=== PATIENT | male | born 1940 | race Caucasian/White ===

== ENCOUNTER → 2023-06-01 08:27 | Outpatient (REF) | payer MEDICARE, OTHER, SELFPAY ==
[2023-06-01 10:14] LABS: ALT (SGPT) 28 U/L (0-50); AST (SGOT) 36 U/L (17-59); Albumin 4.5 g/dl (3.5-5.0); Alkaline Phosphatase 50 U/L (38-126); Blood Urea Nitrogen 24 mg/dl (9-20); Carbon Dioxide 29 mmol/L (22-30); Chloride 97 mmol/L (98-107); Glucose 108 mg/dl (70-99); Potassium 4.5 mmol/L (3.5-5.1); Sodium 135 mmol/L (135-145); Total Bilirubin 1.6 mg/dl (0.2-1.3); Total Protein 7.4 g/dl (6.3-8.2); eGFR > 60.00
[2023-06-01 11:30] LABS: PSA, Total - Diagnostic 3.37 ng/ml (0.0-4.0)
[2023-06-01 11:33] LABS: Testosterone, Total 43.9 ng/dl (72-623)
== END ==
LOC: REG 08:27
PROVIDERS: ATTENDING PHYSICIAN Nurse Practitioner Adult Health; FAMILY PHYSICIAN Internal Medicine
DX: M81.0 Age-related osteoporosis without current pathological fracture (principal); C61 Malignant neoplasm of prostate; C78.00 Secondary malignant neoplasm of unspecified lung
CPT/HCPCS: 36415; 80053; 84153; 84403

== ENCOUNTER 2023-08-02 14:56 | Emergency (ER) | payer MEDICARE, OTHER, SELFPAY ==
[2023-08-02 15:03] VITALS: BP 114/80; BMI 29.4
[2023-08-02 15:19] LABS: % Basophils 0.7 % (0-2); % Eosinophils 1.7 % (0-6); % Immature Granulocytes 1.3 % (0-0.5); % Lymphocytes 15.9 % (20.5-51.1); % Monocytes 11.2 % (1.7-9.3); % Neutrophils 69.2 % (42.2-75.2); Absolute Basophils 0.1 10^3/uL (0-0.2); Absolute Eosinophils 0.1 10^3/uL (0-0.7); Absolute Immature Granulocytes 0.1 10^3/uL (0-0.05); Absolute Lymphocytes 1.1 10^3/uL (1.2-3.4); Absolute Monocytes 0.8 10^3/uL (0.1-0.6); Absolute Neutrophils 4.8 10^3/uL (1.4-6.5); Hematocrit 40.9 % (39.0-52.0); Mean Corp Hgb Conc. 34.2 g/dL (33.0-37.0); Mean Corpuscular Volume 84.9 fL (80.0-94.0); Nucleated Red Blood Cells % 0 % (-); Platelet Count 226 10^3/uL (130-400); Red Blood Cell Count 4.82 10^6/uL (4.70-6.10); Red Cell Dist. Width 12.7 % (11.5-14.5); White Blood Cell Count 6.9 10^3/uL (4.8-10.8)
[2023-08-02 15:46] LABS: Troponin I < 0.012 ng/ml
[2023-08-02 15:50] LABS: ALT (SGPT) 25 U/L (0-50); AST (SGOT) 34 U/L (17-59); Albumin 4.3 g/dl (3.5-5.0); Alkaline Phosphatase 59 U/L (38-126); Blood Urea Nitrogen 18 mg/dl (9-20); Carbon Dioxide 28 mmol/L (22-30); Chloride 98 mmol/L (98-107); Estimated Creatinine Clearance 60 ml/min; Glucose 110 mg/dl (70-99); Potassium 4.8 mmol/L (3.5-5.1); Sodium 135 mmol/L (135-145); Total Bilirubin 1.6 mg/dl (0.2-1.3); Total Protein 7.3 g/dl (6.3-8.2); eGFR > 60.00
--- NOTE | 2023-08-02 16:56 | ED.GENMED ---
History of Present Illness
General
Chief Complaint: Abdominal Symptoms
Source: patient
Exam Limitations: none
Time Seen by Provider: 08/02/23 16:52
Nursing documentation reviewed up to this point in time: agreed with
Travel History
Have you had any contact with someone who has COVID-19?: No
Do you have any symptoms of coronavirus? Fever > 100 degrees, chills, cough, shortness of breath, sore throat, loss of taste or smell, muscle aches, or headache?: No
History of Present Illness
History of Present Illness:
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 He states that it began approximately 24 hours prior to arrival. Patient has a known history of GERD and treats with Carafate and
vzkg-yey-qbknwfk meds. He states that this pain continued last evening and was unable to sleep very well last night. This morning he was nauseated and was having upper back pain. He states that this pain is similar to previous episodes of
pancreatitis. 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 He states that his symptoms have improved throughout the day today. Patient states that he had a normal bowel movement this morning reports no nausea, vomiting, or
diarrhea at this time.
Vital signs are stable. Patient not hypoxic
Nursing note reviewed. I agree with nursing documentation up to this point in time.
Home Meds and allergies reviewed.
NUMBER AND COMPLEXITY OF PROBLEMS ADDRESSED AT THE ENCOUNTER
� Chronic conditions affecting care: Idiopathic pancreatitis, hypertension, hyperlipidemia
� Acute Exacerbation and/or Progression of Chronic Illness: None
� Differential Diagnosis includes: GERD, pancreatitis, colitis, constipation
AMOUNT AND/OR COMPLEXITY OF DATA TO BE REVIEWED AND ANALYZED
I performed an independent evaluation of the following and my interpretation is:
EKG: EKG shows sinus rhythm rate of 68 with prolonged LA interval, otherwise normal intervals, normal axis. No obvious evidence of acute ischemia present. When compared with previous EKG dated October 26, 2019, QT is slightly
shorter,
CT:
X-rays:
Ultrasound:
Laboratory Studies:
Other:
Review of other/old records:
Clinical information was obtained by an independent historian:
Prescriptions/Medications Considered but not given:
Further testing considered but not performed:
RISK OF COMPLICATIONS AND/OR MORBIDITY OR MORTALITY OF PATIENT MANAGEMENT
Social determinants of health affecting care: Good Social Support
Discussion with other providers:
Escalation of care including admission/observation vs risk of discharge considered:
CRITICAL CARE NOTE:
Total Time (exclusive of procedures):
Update:
Past History
Past History
ED Past Medical History: Cancer (Prostate diagnosed in 2001), HTN and Hypercholesterolemia
ED Past Surgical History: Cholecystectomy, Orthopedic (left knee repair, partial fusion lumbar spine) and Urological
Social History
Tobacco: Non-smoker
Alcohol: None
Drug: None
Living: with family
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
Family History
Family History: Other (reviewed and noncontributory)
Phy Exam
General Physical Exam
General Presentation: well appearing and no apparent distress
General Skin: warm and dry
General Habitus: normal
General Mental: alert
General Hydration: appears well hydrated
ENT Exam
ENT Exam: EOMI, pharynx normal, neck supple and normocephalic
Eye Exam
Eye Exam: PERRL, cornea clear and conjunctiva normal
Cardiovascular Exam
Cardiovascular Exam: regular rate/rhythm, no edema, no murmur and normal peripheral pulses
Pulmonary Exam
Pulmonary Exam: lungs clear, no respiratory distress, no rales, no crackles, no rhonchi, no stridor, no wheezing and no cough
Gastrointestinal Exam
Gastrointestinal Exam: normal bowel sounds, non tender, soft, no organomegaly, no pulsatile mass and non distended
Palpation: left upper quadrant: No tenderness and right upper quadrant: No tenderness
Neurological Exam
Neurological Exam: alert, oriented x3, no motor deficits and speech normal
Musculoskeletal Exam
Musculoskeletal Exam: full ROM and no edema
Skin Exam
Skin Exam: normal color, warm/dry, no rash and no petechia
Psychiatric Exam
Psychiatric Exam: normal mood/affect
Course
Orders/Labs/Results
Orders:
Orders
08/02/23 15:07
Electrocardiogram (*1) Urgent
Reason for Study: Chest Pain
EKG- Treatment ONCE
08/02/23 15:13
Complete Blood Count/With Diff Urgent
Comprehensive Metabolic Panel Urgent
Lipase Urgent
Comment: ADD-ON
Troponin I Urgent
08/02/23 16:57
Add On- LAB Urgent
Tests Added?: lipase
08/02/23 17:09
Lactated Ringers [Lr] 1,000 ml IV BOLUS
08/02/23 17:18
Acetaminophen [Tylenol] 650 mg PO NOW STA
08/02/23 17:19
Acetaminophen [Tylenol] 650 mg .ROUTE .STK-MED ONE
08/02/23 18:31
CT Abd/pelvis W Iv Cont Urgent
Comment:
Reason For Exam: upper abd pain, elevated LFT
08/02/23 20:26
Ciprofloxacin HCl [Cipro] 500 mg PO NOW STA
Abnormal Lab Results
08/02/23
15:13
Abs Immat Gran (auto) 0.1 H 10^3/uL
(0-0.05)
Absolute Lymphs (auto) 1.1 L 10^3/uL
(1.2-3.4)
Absolute Monos (auto) 0.8 H 10^3/uL
(0.1-0.6)
Immature Gran % 1.3 H %
(0-0.5)
Lymphocytes % 15.9 L %
(20.5-51.1)
Monocytes % 11.2 H %
(1.7-9.3)
Glucose 110 H mg/dl
(70-99)
Total Bilirubin 1.6 H mg/dl
(0.2-1.3)
Lipase 401 H U/L
(23-300)
08/02/23 15:13
08/02/23 15:13
Vital Signs
Initial and Last Documented VS:
Initial Vital Signs
Temp Pulse Resp BP Pulse Ox
98.3 F 81 20 114/80 98
08/02/23 15:03 08/02/23 15:03 08/02/23 15:03 08/02/23 15:03 08/02/23 15:03
Last Documented Vital Signs
Temp Pulse Resp BP Pulse Ox
98.6 F 55 20 158/89 98
08/02/23 20:23 08/02/23 20:23 08/02/23 20:23 08/02/23 20:23 08/02/23 20:45
*Critical Care Note
Total Time (30-74mins, 75-104mins- exclusive of procedures): Not Applicable
Update Note
Update Note:
Patient resting comfortably, minimal acute distress.
Patient put in the gastroenterology follow-up online via [place] text.
ED Attending Note
-
Portions of this chart may have been created with voice recognition software.� Occasional wrong word or��sound alike� substitutions may have occurred due to the inherent limitations of voice recognition software.
Discharge Plan
Departure
Patient Disposition: Home (Routine Discharge)
Date of Disposition: 08/02/23
Time of Disposition: 20:26
Patient with high blood pressure during this ER visit?: Yes
Condition: Good
Discharge Problem:
Acute proctitis, Abdominal pain, Elevated lipase
Instructions: Proctitis, Clear Liquid Diet, Constipation, Adult ED, Abdominal Pain, BLOOD PRESSURE
Prescriptions:
New
ciprofloxacin HCl 500 mg tablet
500 mg PO BID Qty: 20 0RF
docusate sodium 50 mg capsule
50 mg PO BID Qty: 30 0RF
No Action
losartan 50 MG tablet
50 mg PO DAILY
acetaminophen [Tylenol Extra Strength] 500 MG tablet
1,000 mg PO DAILYPRN PRN (Reason: back pain)
simvastatin 40 MG tablet
40 mg PO QPM
trazodone 150 MG tablet
100 mg PO HS
fluoxetine 10 MG capsule
10 mg PO DAILY
midodrine 5 MG tablet
5 mg PO TID@0800,1300,1800 Qty: 30 0RF
ondansetron 4 MG tablet,disintegrating
4 mg PO TIDPRN PRN (Reason: nausea) Qty: 12 0RF
Referrals:
[facility] [Provider Group] - Next open appointment
Saqib Hicks DO [Family Provider] -
Activity Restrictions/Additional Instructions:
It was a pleasure meeting you and taking part in your care. We hope for your continued healing and wellness.
Please read discharge instructions in their entirety. However, they are for general education and may not describe your exact diagnosis at discharge. Information on your ER visit and medical conditions were discussed with you along with appropriate
follow up information...
If indicated, please take your medications as instructed and indicated on discharge paperwork.
Please schedule a follow up appointment as directed. Call to schedule an appointment
Please return to the emergency department with ANY change in, persisting, or worsening of symptoms. If any of your symptoms do not improve, or persist, or become more severe within 6-12 hours, please return to the emergency department for further
care.
Please return to the emergency department if you develop a headache, neck pain/stiffness, fever greater than 100.4F, chest pain, shortness of breath, persistent nausea, vomiting, slurred speech, difficulty walking, numbness/tingling, weakness, signs
of infection or any other symptoms that are worrisome to you.
If you have any questions or concerns please do not hesitate to call the Hospital at or E-mail me directly at [email or web address]
Interventions
Interventions:
*Risk Screen - Suicide Last Done: 08/02/23 15:03
*General Assessment Last Done: 08/02/23 18:29
*Neglect/Abuse Screening Last Done: 08/02/23 15:03
ED- Fall Risk Assessment Last Done: 08/02/23 20:23
*ED COVID-19 Vaccine History Last Done: 08/02/23 18:29
*Nursing Disposition Last Done: 08/02/23 20:45
XF-Dmevmu-Clyrcucakz Assessment Last Done: 08/02/23 20:23
Discharge Date and Time
Discharge Date/Time: 08/02/23 21:58
Print Language: CONGOLESE
[2023-08-02] MEDS: LR 1000 IV (17:21)
[2023-08-02] MEDS: TYLENOL 650 MG PO (17:21)
[2023-08-02 17:27] LABS: Lipase 401 U/L (23-300)
[2023-08-02 18:20] VITALS: BP 148/99
[2023-08-02 20:23] VITALS: BP 158/89
[2023-08-02] MEDS: CIPRO 500 MG PO (20:32)
== END 2023-08-02 21:58 | disposition home or self-care (01) ==
LOC: EMR 14:56
PROVIDERS: Emergency Medicine; EMERGENCY PHYSICIAN Student in an Organized Health Care Education/Training Program; FAMILY PHYSICIAN Internal Medicine
DX: K62.89 Other specified diseases of anus and rectum (principal); R74.8 Abnormal levels of other serum enzymes; R10.9 Unspecified abdominal pain; K21.9 Gastro-esophageal reflux disease without esophagitis; I11.9 Hypertensive heart disease without heart failure; E78.00 Pure hypercholesterolemia, unspecified; Z90.49 Acquired absence of other specified parts of digestive tract; Z90.79 Acquired absence of other genital organ(s)
CPT/HCPCS: 99284; 96360; 96361; 74177; 80053; 83690; 84484; 85025; 93005; Q9967

== ENCOUNTER → 2023-08-28 09:31 | Outpatient (REF) | payer MEDICARE, OTHER, SELFPAY ==
[2023-08-28 10:59] LABS: Hematocrit 42.9 % (39.0-52.0); Hemoglobin 14.3 g/dL (13.0-18.0); Mean Corp Hgb Conc. 33.3 g/dL (33.0-37.0); Mean Corpuscular Hgb 29.2 pg (27.0-31.0); Mean Corpuscular Volume 87.7 fL (80.0-94.0); Mean Platelet Volume 9.4 fL (7.4-10.4); Platelet Count 252 10^3/uL (130-400); Red Blood Cell Count 4.89 10^6/uL (4.70-6.10); White Blood Cell Count 5.9 10^3/uL (4.8-10.8)
[2023-08-28 11:29] LABS: ALT (SGPT) 30 U/L (0-50); AST (SGOT) 38 U/L (17-59); Albumin 4.6 g/dl (3.5-5.0); Alkaline Phosphatase 62 U/L (38-126); Direct Bilirubin 0.3 mg/dl (0.0-0.4); Iron 88 ug/dl (49-181); Total Bilirubin 1.4 mg/dl (0.2-1.3); Total Protein 7.6 g/dl (6.3-8.2)
[2023-08-28 11:40] LABS: Percent Saturation 25 % (20-50); Total Iron Binding Capacity 352 ug/dl (261-462)
[2023-08-28 12:00] LABS: PSA, Total - Screen 5.46 ng/ml (0.0-4.0)
[2023-08-28 12:18] LABS: Hepatitis B Core Ab, Total Negative (Negative); Hepatitis B Surface Antibody Positive; Hepatitis C Antibody Negative (Negative)
[2023-08-29 18:18] LABS: F-Actin Antibody IgG 11 Units (0-19)
[2023-08-29 20:39] LABS: Ceruloplasmin 26 mg/dL (15-30)
[2023-08-29 22:55] LABS: ANA, IgG Reflex to HEp-2 None Detected (None Detected)
[2023-08-30 00:33] LABS: LKM-1 Ab (IgG) 1.1 U (0.0-24.9)
[2023-08-30 23:39] LABS: IgA 318 mg/dl (70-400); IgG 1020 mg/dl (700-1600); IgM 73 mg/dl (40-230)
== END ==
LOC: REG 09:31
PROVIDERS: ATTENDING PHYSICIAN Internal Medicine; FAMILY PHYSICIAN Internal Medicine; REFERRING PHYSICIAN Internal Medicine Gastroenterology
DX: C61 Malignant neoplasm of prostate (principal); C78.00 Secondary malignant neoplasm of unspecified lung; K76.0 Fatty (change of) liver, not elsewhere classified; Z12.5 Encounter for screening for malignant neoplasm of prostate
CPT/HCPCS: 36415; 80076; 82103; 82104; 82390; 82784; 83516; 83540; 83550; 84403; 85027; 86015; 86038; 86376; 86704; 86706; 86803; G0103

== ENCOUNTER → 2023-09-29 08:10 | Outpatient (REF) | payer MEDICARE, OTHER, SELFPAY | LOC: HWRAD 08:10 | PROVIDERS: ATTENDING PHYSICIAN Internal Medicine | DX: M81.0 Age-related osteoporosis without current pathological fracture (principal) | CPT/HCPCS: 77080 ==

== ENCOUNTER → 2023-11-24 11:01 | Outpatient (REF) | payer MEDICARE, OTHER, SELFPAY ==
[2023-11-24 12:46] LABS: PSA, Total - Diagnostic 6.77 ng/ml (0.0-4.0)
[2023-11-24 12:48] LABS: Testosterone, Total 37.9 ng/dl (72-623)
[2023-11-25 08:15] LABS: ALT (SGPT) 29 U/L (0-50); AST (SGOT) 35 U/L (17-59); Albumin 4.4 g/dl (3.5-5.0); Alkaline Phosphatase 51 U/L (38-126); Blood Urea Nitrogen 16 mg/dl (9-20); Calcium 9.5 mg/dl (8.4-10.2); Carbon Dioxide 23 mmol/L (22-30); Chloride 101 mmol/L (98-107); Glucose 109 mg/dl (70-99); Potassium 4.7 mmol/L (3.5-5.1); Sodium 139 mmol/L (135-145); Total Bilirubin 1.5 mg/dl (0.2-1.3); Total Protein 6.9 g/dl (6.3-8.2); eGFR > 60.00
== END ==
LOC: REG 11:01
PROVIDERS: ATTENDING PHYSICIAN Nurse Practitioner Adult Health; FAMILY PHYSICIAN Internal Medicine
DX: C61 Malignant neoplasm of prostate (principal); C78.00 Secondary malignant neoplasm of unspecified lung
CPT/HCPCS: 36415; 80053; 84153; 84403

== ENCOUNTER → 2024-01-12 09:16 | Outpatient (REF) | payer MEDICARE, OTHER, SELFPAY | LOC: HWRCS 09:16 | PROVIDERS: ATTENDING PHYSICIAN Nurse Practitioner Gerontology; FAMILY PHYSICIAN Internal Medicine | DX: I77.810 Thoracic aortic ectasia (principal); I35.1 Nonrheumatic aortic (valve) insufficiency | CPT/HCPCS: 93306 ==

== ENCOUNTER 2024-02-14 17:15 | Inpatient (IN) | payer MEDICARE, OTHER, SELFPAY ==
[2024-02-14] VITALS (10 sets, daily range): BP systolic 127–144; BP diastolic 80–93; BMI 29.9
--- NOTE | 2024-02-14 11:20 | ED.GENMED ---
History of Present Illness
General
Chief Complaint: Rectal Bleeding
Time Seen by Provider: 02/14/24 11:05
History of Present Illness
History of Present Illness:
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 Patient states that
last week he developed black tarry stools. He not have any abdominal pain or nausea vomiting. He does state that he has been taking Celebrex 2 times a day for back pain secondary to prior radiation. 24 hours ago his stool transition to maroon.
He has been having ongoing loose stools. No abdominal pain. No nausea or vomiting. He did have a both endoscopy and colonoscopy 4 years ago. 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
endoscopy showed resolution. He does state that his prior hemoglobin was normal but he has been more short of breath lately. He occasionally notes elevated heart rate though he states that it is normal for him in the morning and he takes his
metoprolol which resolves it. No recent travel or antibiotics. No sick contacts. Has never happened to him before.
Past History
Past History
ED Past Medical History: Cancer (Prostate diagnosed in 2001), HTN and Hypercholesterolemia
ED Past Surgical History: Cholecystectomy, Orthopedic (left knee repair, partial fusion lumbar spine) and Urological
Social History
Tobacco: Non-smoker
Alcohol: None
Drug: None
Living: with family
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
Family History
Family History: Other (reviewed and noncontributory)
Phy Exam
Physical Exam
Physical Exam:
GENERAL: in no acute distress
HEENT: normocephalic, extraocular movements intact, moist oral mucosa
NECK: normal inspection
RESPIRATORY: no respiratory distress, clear to auscultation bilaterally
CARDIOVASCULAR: regular rate and rhythm
ABDOMEN/: soft, non-distended, non-tender to palpation, no rebound or guarding
EXTREMITIES: non-tender, no edema/swelling
NEUROLOGIC: awake and alert, moves all extremities
SKIN: warm
Course
Orders/Labs/Results
Orders:
Orders
02/14/24 11:19
Electrocardiogram (*1) Urgent
Reason for Study: Shortness of Breath
EKG- Treatment ONCE
02/14/24 11:20
Ct Cta A/P W/Wo Urgent
Reason For Exam: diarrhea, gi bleed
02/14/24 11:36
Complete Blood Count/With Diff Urgent
Comprehensive Metabolic Panel Urgent
Troponin I Urgent
02/14/24 12:57
Stool Culture Urgent
RAQUEL Source: Feces/Stool
Specimen Description:
Date Specimen was Collected: 02/14/24
Time Specimen was Collected: 12:48
Abnormal Lab Results
02/14/24
11:36
RBC 4.65 L 10^6/uL
(4.70-6.10)
Absolute Lymphs (auto) 0.9 L 10^3/uL
(1.2-3.4)
Absolute Monos (auto) 0.8 H 10^3/uL
(0.1-0.6)
Lymphocytes % 13.3 L %
(20.5-51.1)
Monocytes % 12.2 H %
(1.7-9.3)
Total Bilirubin 1.4 H mg/dl
(0.2-1.3)
02/14/24 11:36
02/14/24 11:36
Vital Signs
Initial and Last Documented VS:
Initial Vital Signs
Temp Pulse Resp BP Pulse Ox
98.1 F 86 16 140/88 99
02/14/24 09:37 02/14/24 09:37 02/14/24 09:37 02/14/24 09:37 02/14/24 09:37
Last Documented Vital Signs
Temp Pulse Resp BP Pulse Ox
98.3 F 66 16 144/93 97
02/14/24 14:10 02/14/24 14:10 02/14/24 09:37 02/14/24 14:10 02/14/24 14:10
MDM/Problems Addressed
Differential Diagnosis Includes:
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
red. Vitals here notable for normal blood pressure and exam does show soft benign abdomen. Differential is broad but consists of diverticulitis versus peptic ulcer disease versus metastatic cancer. History exam not consistent with mesenteric
ischemia or aortic pathology. Shortness of breath could be secondary to anemia however will rule out cardiac etiology. Will obtain blood work EKG CT scan.
*Critical Care Note
Total Time (30-74mins, 75-104mins- exclusive of procedures): Not Applicable
Update Note
Update Note:
Blood work reassuring. His hemoglobin is stable. EKG per my interpretation normal sinus rhythm with first-degree AV block. CT scan does does show rectal mass consistent with rectal carcinoma as well as liver lesions suspicious for hepatic
metastatic disease. Given the ongoing bleeding as well as the masses after shared decision making we will admit patient for further monitoring and evaluation. Patient is extremely anxious so will treat with small dose of Ativan. Discussed with
hospitalist who excepted patient to their service.
ED Attending Note
-
Portions of this chart may have been created with voice recognition software.� Occasional wrong word or��sound alike� substitutions may have occurred due to the inherent limitations of voice recognition software.
Discharge Plan
Departure
Patient Disposition: Admit
Date of Disposition: 02/14/24
Time of Disposition: 14:57
Presentation/result/management discussed w/ accepting MD/DO: Hospitalist
Discharge Problem:
Rectal mass, Lesion of liver, Bloody stool
Prescriptions:
No Action
celecoxib [Celebrex] 200 mg Capsule
200 mg PO DAILYPRN PRN (Reason: mild pain)
atorvastatin [Lipitor] 20 mg Tablet
20 mg PO HS
calcium carbonate [Calcium 500] 500 mg calcium (1,250 mg) Tablet
500 mg PO DAILY
trazodone 150 mg Tablet
150 mg PO HS
hydrochlorothiazide 25 mg Tablet
12.5 mg PO MOWEFR@0800
metoprolol succinate 25 mg Tablet Extended Release 24 Hr
25 mg PO DAILY
escitalopram oxalate [Lexapro] 10 mg Tablet
10 mg PO HS
cholecalciferol (vitamin D3) [Vitamin D3] 25 mcg (1,000 unit) Tablet
25 mcg PO DAILY
Prolia 60 mg/mL Syringe
60 mg SC [id number]
Referrals:
Saqib Hicks DO [Family Provider] -
Interventions
Interventions:
*Risk Screen - Suicide Last Done: 02/14/24 09:40
*General Assessment Last Done: 02/14/24 11:37
*Neglect/Abuse Screening Last Done: 02/14/24 09:40
*ED COVID-19 Vaccine History Last Done: 02/14/24 11:37
FL-Najtkg-Rikcvjrnnu Assessment Last Done: 02/14/24 11:34
ED- Cardiac Assessment Last Done: 02/14/24 11:37
ED- Pulmonary Assessment Last Done: 02/14/24 11:37
Discharge Date and Time
Print Language: [place] CITIZ[place]
[2024-02-14 12:00] LABS: ALT (SGPT) 22 U/L (0-50); AST (SGOT) 32 U/L (17-59); Albumin 4.4 g/dl (3.5-5.0); Alkaline Phosphatase 45 U/L (38-126); Blood Urea Nitrogen 14 mg/dl (9-20); Calcium 9.1 mg/dl (8.4-10.2); Carbon Dioxide 29 mmol/L (22-30); Chloride 99 mmol/L (98-107); Estimated Creatinine Clearance 67 ml/min; Glucose 92 mg/dl (70-99); Potassium 3.9 mmol/L (3.5-5.1); Sodium 137 mmol/L (135-145); Total Bilirubin 1.4 mg/dl (0.2-1.3); Total Protein 7.1 g/dl (6.3-8.2); eGFR > 60.00
[2024-02-14 12:03] LABS: % Basophils 0.5 % (0-2); % Eosinophils 0.5 % (0-6); % Immature Granulocytes 0.5 % (0-0.5); % Lymphocytes 13.3 % (20.5-51.1); % Monocytes 12.2 % (1.7-9.3); Absolute Lymphocytes 0.9 10^3/uL (1.2-3.4); Absolute Monocytes 0.8 10^3/uL (0.1-0.6); Absolute Neutrophils 4.9 10^3/uL (1.4-6.5); Hemoglobin 13.7 g/dL (13.0-18.0); Mean Corp Hgb Conc. 33.4 g/dL (33.0-37.0); Mean Corpuscular Hgb 29.5 pg (27.0-31.0); Mean Corpuscular Volume 88.2 fL (80.0-94.0); Mean Platelet Volume 8.7 fL (7.4-10.4); Nucleated Red Blood Cells % 0 % (-); Platelet Count 258 10^3/uL (130-400); Red Blood Cell Count 4.65 10^6/uL (4.70-6.10); Red Cell Dist. Width 12.9 % (11.5-14.5); White Blood Cell Count 6.6 10^3/uL (4.8-10.8)
[2024-02-14 12:12] LABS: Troponin I < 0.012 ng/ml
[2024-02-14] MEDS: ATIVAN 0.25 MG PO (15:22)
--- NOTE | 2024-02-14 17:00 | HPS.HSE ---
Family Physician
-
Family Physician: Saqib Hicks
Chief Complaint
-
Blood in stool for few days duration
History of Present Illness
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 Patient black tarry stools in last few days. He had 2 bowel movements today with some bright blood but no active bleeding. Hemoglobin on admission 13.7. Patient
denied abdominal pain, nausea or vomiting. He takes Celebrex for muscle/bone pain but not on systemic anticoagulation or aspirin. Patient reported intentional weight loss recently but no significant weight loss. He had colonoscopy more than 4
years ago with no significant findings. Scan of the abdomen and pelvis showed enhancing mass in the rectum with enhancing lesion in the right lobe of the liver. Patient has metastatic prostate cancer that he followed at [place] but currently
not on specific medications.
Medical History
Past Medical History
Past Medical History: Reports Other (Ascending aortic aneurysm, hypertension, hyperlipidemia, anxiety, aortic regurgitation, metastatic prostate cancer.)
Past Surgical History: Reports Other (No recent major surgery)
Social History
Tobacco: Non-smoker
Alcohol: None
Drug: None
Personal:
Living: With Family
Employment: Retired
Family History
Family History: Other (His father had prostate cancer and colon cancer)
Allergies / Home Medications
Allergies reflects when Allergies were last updated in [email or web address].
Home Medications with original date entered in [email or web address]
Allergy/Medication List:
Allergies
Allergy/AdvReac Type Severity Reaction Status Date / Time
ketoconazole Allergy 'adverse Verified 08/02/23 15:06
reaction'
Home Medications
atorvastatin 20 mg tablet (Lipitor) 20 mg PO HS 02/14/24
calcium carbonate 500 mg PO DAILY 02/14/24
celecoxib 200 mg capsule (Celebrex) 200 mg PO DAILYPRN PRN mild pain 02/14/24
cholecalciferol (vitamin D3) 25 mcg (1,000 unit) tablet (Vitamin D3) 25 mcg PO DAILY 02/14/24
denosumab 60 mg/mL subcutaneous syringe (Prolia) 60 mg SC [id number] 02/14/24
escitalopram oxalate 10 mg tablet (Lexapro) 10 mg PO HS 02/14/24
hydrochlorothiazide 25 mg tablet 12.5 mg PO MOWEFR@0800 02/14/24
metoprolol succinate 25 mg tablet,extended release 24 hr 25 mg PO DAILY 02/14/24
trazodone 150 mg tablet 150 mg PO HS 02/14/24
Review of Systems
-
History Source: Patient
A 12 point ROS was completed and negative except as noted: Yes
Constitutional: Denies Fever or Chills
EENT: Denies Sore Throat
Respiratory: Denies Cough
Cardiac: Denies Chest Pain
Abdomen/GI: Reports Bloody Stools and Black Stools; Denies Abdominal Pain, Nausea, Vomiting or Diarrhea
: Denies Dysuria or Bleeding
Musculoskeletal: Denies Joint Swelling
Skin: Denies Rash
Neurological: Denies Numbness
Endocrine: Denies Temp Intolerance
Hematologic/Lymphatic: Denies Bruising
Psych: Denies Panic Disorder
Physical Exam
Vital Signs
Vital Signs
Temp Pulse Resp BP Pulse Ox
98.2 F 68 18 138/84 96
02/14/24 15:21 02/14/24 16:49 02/14/24 16:49 02/14/24 16:49 02/14/24 16:49
Physical Exam
General: Well Nourished, No Apparent Distress and Comfortable
HEENT: Moist mucous membranes and Atraumatic
Respiratory: Clear
Cardiac: S1/S2, Regular Rhythm and Murmur
GI: Non Tender and Non Distended
Genito-urinary: No costovertebral tender; No Toribio
Musculoskeletal: No Clubbing, No Cyanosis and No Edema
Skin: Warm; No Rash or Jaundice
Neuro: AO x 3 and Nonfocal/grossly intact; No Slurred Speech, Facial Droop or Tremors
Psych: Calm and Intact Judgment/Insight
Laboratory Results
-
02/14/24 11:36
02/14/24 11:36
Laboratory Results
Total Bilirubin 1.4 mg/dl (0.2-1.3) H 02/14/24 11:36
AST 32 U/L (17-59) 02/14/24 11:36
ALT 22 U/L (0-50) 02/14/24 11:36
Alkaline Phosphatase 45 U/L (38-126) 02/14/24 11:36
Troponin I < 0.012 ng/ml 02/14/24 11:36
Impression/Plan
-
[age] years old male presented with rectal bleeding/ melena
# History of lower GI bleeding/melena
Admit the patient to the hospital.
Secure peripheral IV line, two lines
Repeat hemoglobin few hours as admission HGB at 13. No active bleeding at the current time. Last bowel movement was this afternoon. No urgency to defecate noted
Consent for blood transfusion is signed by patient in the emergency room.
Monitor on telemetry.
CAT scan showed rectal mass/lymphadenopathy with liver lesion. Suspicious for rectal carcinoma
Liquid diet for now. No pain or abdominal tenderness. No distention on examination
Consult colorectal and oncology.
# History of primary hypertension. Will continue metoprolol monitor on telemetry. Hold hydrochlorothiazide. Patient reported dizziness upon standing at times which is usual for him.
#History of valvular heart disease, aortic regurgitation.
Echo in December, showed aortic root 4.1 cm, ascending aorta 4.2 cm with LVEF 65 to 70%, mild aortic regurgitation. No history of syncopal episode. No palpitations. EKG consistent with sinus rhythm.
# Anxiety. Patient requested as needed oral Ativan. Continue with Lexapro and trazodone.
Total time spent to see the patient on the floor, examine the patient, review data and lab results, discuss treatment plan with patient, ER doctor, nursing staff around 75 minutes.
--- NOTE | 2024-02-14 19:40 | PTCARENOTE ---
Pt received from ED via stretcher. Ambulated to bed without assistance. AAOx3. Denying pain. SaO2 98% on room air. Pt denying shortness of breath. Lungs clear to auscultation. Sinus rhythm with 1st degree AV block on ekg monitor tech. Trace LE
edema. Skin with scab on right hand; pt states it was cancerous lesion recently removed. Full liquid diet. No melena yet observed. Ambulatory with minimal assistance. Health history obtained and admission conducted with aid of patient.
[2024-02-14] MEDS: LEXAPRO 10 MG PO (21:48)
[2024-02-14] MEDS: ATIVAN 0.5 MG PO (21:48)
[2024-02-14] MEDS: DESYREL 150 MG PO (21:48)
[2024-02-14 22:12] LABS: Hemoglobin 13.2 g/dL (13.0-18.0)
[2024-02-15 03:45] VITALS: BP 122/84
[2024-02-15 07:21] VITALS: BP 137/88
[2024-02-15 07:44] LABS: Hematocrit 41.8 % (39.0-52.0); Mean Corp Hgb Conc. 33.5 g/dL (33.0-37.0); Mean Corpuscular Hgb 29.4 pg (27.0-31.0); Mean Corpuscular Volume 87.8 fL (80.0-94.0); Mean Platelet Volume 8.8 fL (7.4-10.4); Platelet Count 270 10^3/uL (130-400); Red Blood Cell Count 4.76 10^6/uL (4.70-6.10); Red Cell Dist. Width 12.9 % (11.5-14.5); White Blood Cell Count 6.3 10^3/uL (4.8-10.8)
[2024-02-15] MEDS: TOPROL XL 25 MG PO (07:49)
[2024-02-15 08:17] LABS: Blood Urea Nitrogen 14 mg/dl (9-20); Calcium 9.3 mg/dl (8.4-10.2); Carbon Dioxide 28 mmol/L (22-30); Chloride 99 mmol/L (98-107); Estimated Creatinine Clearance 60 ml/min; Glucose 114 mg/dl (70-99); Potassium 4.4 mmol/L (3.5-5.1); Sodium 137 mmol/L (135-145); eGFR > 60.00
--- NOTE | 2024-02-15 08:31 | W.PN.HOSP.TC ---
Today's Communication/Plan
-
CT scan of the chest. Liver MRI. Oncology and colorectal surgery eval.
Assessment / Plan
Assessment / Plan
Physical exam:
General: Well Developed, Well Nourished and No Apparent Distress
HEENT: Normocephalic, Atraumatic and Moist Mucous Membranes
Respiratory: Clear to Auscultation; Negative Wheezes, Rales or Rhonchi
Cardiac: Regular Rhythm and S1/S2
GI: Soft, Nontender and Nondistended
Musculoskeletal: No Clubbing, No Cyanosis and No Edema
Neuro: Awake, Alert and Oriented
Psych: Calm
A/P:
Rectal mass:
Plan for colonoscopy on 02/16
Appreciated colorectal surgery consult
Metastatic prostate cancer:
Oncology consult appreciated
MRI with 1.6 cm mass on right lobe
Right medial lower lobe 4 mm node on the lung
PSA 8.3
CEA pending
Hypertension and history of SVT:
Continue metoprolol succinate 25 mg p.o. daily
Hold HCTZ
Cardiac monitoring
Depression and anxiety:
Continue escitalopram 10 mg p.o. daily
Continue trazodone 150 mg p.o. nightly
Continue lorazepam 0.5 mg 3 times daily as needed
Ascending aortic aneurysm and mild aortic regurgitation:
Monitor clinically and with serial images
DVT prophylaxis:
SCDs
CODE STATUS:
Full code
Total time spent on today's encounter was 52 minutes which included time spent in counseling the patient/family regarding diagnosis and treatment plan as listed above, goals of care, and symptom management. Case was discussed with nursing staff,
specialists, and care coordinators/case management. All labs and imaging personally reviewed by me. Remainder the time spent in detailed review of previous records, lab data, imaging, and other medical provider documentation.
Anticipated Discharge: > 48 hours
Subjective/Interval History
-
Date of Service: February 15, 2024
No further rectal bleeding. No abdominal pain. No chest pain or shortness of breath.
Objective Data
-
Labs:
Laboratory Results
02/14/24 02/15/24
22:05 07:16
WBC 6.3
Hgb 13.2 14.0
Hct 41.8
Plt Count 270
Sodium 137
Potassium 4.4
Chloride 99
Carbon Dioxide 28
BUN 14
Creatinine 1.0
Glucose 114 H
Calcium 9.3
Vital Signs:
Vital Signs
Temp Pulse Resp BP Pulse Ox
98.2 F 73 18 137/88 96
02/15/24 07:21 02/15/24 07:21 02/15/24 07:21 02/15/24 07:21 02/15/24 07:21
I&O
02/14/24 02/15/24 02/16/24
06:59 06:59 06:59
Intake Total 480 / 480
Balance 480 / 480
--- NOTE | 2024-02-15 10:06 | CON.ONC ---
Documented by User: Hesham Mathis MD, Resident 02/15/24 12:02
Impression
Impression
Assessment/Plan
#Lower GI Bleed
#Lesion within the right lobe of the liver
#Mass in the right wall of the rectum
#History of Metastatic Prostate cancer.
#Hx of Right Lung middle lobe lesion
Plan
Plan
-Evaluate Liver lesion found on CT with MRI of Abdomen.
-Chest CT scan w IV contrast to exclude lung mets.
-Colonoscopy with Biopsy.
-Hgb stable, no evidence of active bleeding at this time.
-Monitor Hgb level.
-With elevated Tbil, check Direct Timbo.
-Check PSA level.
Patient History
History of Present Illness
Patient is an 83 y/o male with past medical history of Metastatic prostate cancer s/p radiation therapy, Right Lung middle lobe lesion s/p resection, bony metastatic disease s/p radiation therapy and Rib removal who presents to ER 02/13
complaining of dark tarry stools ongoing for the past week. Patient noted 2-3 bowel movements with bright red blood but no symptoms of active bleeding. He denies nausea, abdominal tenderness, shortness of breath. On presentation to the ER, Hgb was
13.7. Evaluation with Abdominal/Pelvis CT showed Enhancing mass which appears centered in the right wall of the rectum, and is highly suspicious for rectal carcinoma. There is evidence for spread in the perirectal fat as well as adjacent perirectal
lymphadenopathy. Peripherally enhancing lesion within the right lobe of the liver, which is suspicious for hepatic metastatic disease.
Past-Medical/Surgical History
metastatic prostate cancer
Right lung lesion
Ascending aortic aneurysm
hypertension
hyperlipidemia
anxiety
aortic regurgitation
Patient Medication
�Medication �Instructions �Recorded �Confirmed �Last Taken �Type
atorvastatin 20 mg tablet (Lipitor) 20 mg PO HS High Cholesterol 02/14/24 02/14/24 02/13/24 History
calcium carbonate 500 mg PO DAILY Supplement 02/14/24 02/14/24 02/13/24 History
celecoxib 200 mg capsule (Celebrex) 200 mg PO DAILYPRN PRN mild pain 02/14/24 02/14/24 Unknown History
cholecalciferol (vitamin D3) 25 25 mcg PO DAILY Supplement 02/14/24 02/14/24 02/13/24 History
mcg (1,000 unit) tablet (Vitamin
D3)
denosumab 60 mg/mL subcutaneous 60 mg SC [id number] 02/14/24 02/14/24 08/11/23 History
syringe (Prolia)
escitalopram oxalate 10 mg tablet 10 mg PO HS Mental Health/Anxiety 02/14/24 02/14/24 02/13/24 History
(Lexapro)
hydrochlorothiazide 25 mg tablet 12.5 mg PO MOWEFR@0800 Fluid 02/14/24 02/14/24 02/12/24 History
Retention/Swelling
metoprolol succinate 25 mg 25 mg PO DAILY Heart 02/14/24 02/14/24 02/14/24 History
tablet,extended release 24 hr Disease/Condition
trazodone 150 mg tablet 150 mg PO HS Sleep 02/14/24 02/14/24 02/13/24 History
Active Medications
Generic Name Dose Route Start Last Admin
Trade Name Freq PRN Reason Stop Dose Admin
Escitalopram Oxalate 10 mg 02/14/24 22:00 02/14/24 21:48
Escitalopram 10 Mg Tablet PO 03/13/24 21:59 10 mg
HS THONY Administration
Lorazepam 0.5 mg 02/14/24 22:00 02/14/24 21:48
Lorazepam 0.5 Mg Tablet PO 03/13/24 21:59 0.5 mg
TIDPRN PRN Administration
anxiety
Metoprolol Succinate 25 mg 02/15/24 08:00 02/15/24 07:49
Metoprolol 25 Mg Extended Release Tablet PO 03/14/24 07:59 25 mg
DAILY THONY Administration
Trazodone HCl 150 mg 02/14/24 22:00 02/14/24 21:48
Trazodone 150 Mg Tablet PO 03/13/24 21:59 150 mg
HS THONY Administration
Review of Systems
-
History Source: Patient
All Other Systems: Reviewed and Negative (except as documented. )
Physical Exam
-
General: No Apparent Distress
Cardiology: Normal Sinus Rhythm, S1 and S2
Pulmonary: Clear
GI: Soft and Normal Bowel Sounds; Negative Distended
Musculoskeletal: No Edema
Extremities: Pulses Present
Skin: Warm
Psych: Calm
Labs
Lab Results
WBC 6.3 10^3/uL (4.8-10.8) 02/15/24 07:16
RBC 4.76 10^6/uL (4.70-6.10) 02/15/24 07:16
Hgb 14.0 g/dL (13.0-18.0) 02/15/24 07:16
Hct 41.8 % (39.0-52.0) 02/15/24 07:16
MCV 87.8 fL (80.0-94.0) 02/15/24 07:16
MCH 29.4 pg (27.0-31.0) 02/15/24 07:16
MCHC 33.5 g/dL (33.0-37.0) 02/15/24 07:16
RDW 12.9 % (11.5-14.5) 02/15/24 07:16
Plt Count 270 10^3/uL (130-400) 02/15/24 07:16
MPV 8.8 fL (7.4-10.4) 02/15/24 07:16
Abs Immat Gran (auto) 0.0 10^3/uL (0-0.05) 02/14/24 11:36
Absolute Neuts (auto) 4.9 10^3/uL (1.4-6.5) 02/14/24 11:36
Absolute Lymphs (auto) 0.9 10^3/uL (1.2-3.4) L 02/14/24 11:36
Absolute Monos (auto) 0.8 10^3/uL (0.1-0.6) H 02/14/24 11:36
Absolute Eos (auto) 0.0 10^3/uL (0-0.7) 02/14/24 11:36
Absolute Basos (auto) 0.0 10^3/uL (0-0.2) 02/14/24 11:36
Immature Gran % 0.5 % (0-0.5) 02/14/24 11:36
Neutrophils % 73.0 % (42.2-75.2) 02/14/24 11:36
Lymphocytes % 13.3 % (20.5-51.1) L 02/14/24 11:36
Monocytes % 12.2 % (1.7-9.3) H 02/14/24 11:36
Eosinophils % 0.5 % (0-6) 02/14/24 11:36
Basophils % 0.5 % (0-2) 02/14/24 11:36
Creatinine 1.0 mg/dL (0.7-1.3) 02/15/24 07:16
Vital Signs
Vital Signs
Temp Pulse Resp BP Pulse Ox
98.2 F 73 18 137/88 96
02/15/24 07:21 02/15/24 07:21 02/15/24 07:21 02/15/24 07:21 02/15/24 07:21

Documented by User: Radha Portillo MD 02/15/24 20:54
Plan
Plan
-Evaluate Liver lesion found on CT with MRI of Abdomen.
-Chest CT scan w IV contrast to exclude lung mets.
-Colonoscopy with Biopsy.
-Hgb stable, no evidence of active bleeding at this time.
-Monitor Hgb level.
-With elevated Tbil, check Direct Timbo.
-Check PSA level.
ATTENDING ADDENDUM
Pt seen and examined, chart reviewed.
History of radical prostatectomy, got salvage radiation for biochemical recurrence. Also had lung nodule resection.
Known to Dr. Curry, cancer care has been at [facility].
If biopsy positive for rectal cancer then MSI testing.
Family history of prostate and rectal cancer in father is noted, denies other family history of cancer.
NCCN Guidelines reviewed with caveat that he has already had pelvic radiation.
Thank you for consult, will follow along with you.
--- NOTE | 2024-02-15 10:28 | CON.CRS ---
Consultation
-
Date/Time Consultation Requested: 02/14/2024, 18:06
Date/Time Consultation Performed: 02/15/2024, 9:00
Requesting Provider: Eddi Morales MD
Performing Provider: Ranjan Ralph MD
Reason for Consultation: rectal bleeding
Medical History
-
Chief Complaint: Rectal bleeding
History of Present Illness:
83-year-old male with a history of metastatic prostate cancer, presents to [facility] complaining of about a week of rectal bleeding. The patient states he noticed his bowels changed about 6 weeks ago in frequency. He then noted about a
week ago black tarry stools which were then followed by brown and red stools. He denies abdominal pain or rectal pain. He has a history of prostate cancer that metastasized to his right rib and right middle lung. He underwent a prostatectomy in
2001 followed by a right lower lobe lobectomy in 2019. The lesion in the right rib was treated with radiotherapy. He is currently under the care of [place]. He states he had a PET scan in May that showed a nonhealing rib with no metastasis.
His PSA has been slowly trending upwards but the rate has been so slow, he has not required any further treatment.
Due to the bleeding not stopping, he came to the ER yesterday. On admission his hemoglobin was 13.7 and is 14.0 today. His vitals have remained normal. CT of the abdomen and pelvis shows an enhancing mass which appears centered in the right wall
of the rectum suspicious for rectal cancer. There is evidence for spread in the perirectal fat as well as adjacent perirectal lymphadenopathy. There is also a peripherally enhancing lesion in the right lobe of the liver suspicious for hepatic
metastatic disease. His last colonoscopy was in [address] Turcios which showed a normal colon. Given the above findings, we have been consulted for further surgical opinion.
Past Medical History
Past Medical History: Other (Ascending aortic aneurysm, hypertension, hyperlipidemia, anxiety, aortic regurgitation, metastatic prostate cancer)
Past Surgical History: Other (prostatectomy - 2001, rib biopsy - 2019, Spinal fusion)
Social History
Tobacco: Non-Smoker
Alcohol: None
Drug: None
Personal:
Family History
Family History: Cancer (Father - prostate cancer 62yo, rectal cancer 82yo)
Allergies / Home Medications
Allergy/AdvReac Type Severity Reaction Status Date / Time
ketoconazole Allergy 'adverse Verified 08/02/23 15:06
reaction'
�Medication �Instructions �Recorded �Confirmed �Type
atorvastatin 20 mg tablet (Lipitor) 20 mg PO HS High Cholesterol 02/14/24 02/14/24 History
calcium carbonate 500 mg PO DAILY Supplement 02/14/24 02/14/24 History
celecoxib 200 mg capsule (Celebrex) 200 mg PO DAILYPRN PRN mild pain 02/14/24 02/14/24 History
cholecalciferol (vitamin D3) 25 25 mcg PO DAILY Supplement 02/14/24 02/14/24 History
mcg (1,000 unit) tablet (Vitamin
D3)
denosumab 60 mg/mL subcutaneous 60 mg SC [id number] 02/14/24 02/14/24 History
syringe (Prolia)
escitalopram oxalate 10 mg tablet 10 mg PO HS Mental Health/Anxiety 02/14/24 02/14/24 History
(Lexapro)
hydrochlorothiazide 25 mg tablet 12.5 mg PO MOWEFR@0800 Fluid 02/14/24 02/14/24 History
Retention/Swelling
metoprolol succinate 25 mg 25 mg PO DAILY Heart 02/14/24 02/14/24 History
tablet,extended release 24 hr Disease/Condition
trazodone 150 mg tablet 150 mg PO HS Sleep 02/14/24 02/14/24 History
Review of Systems
-
History Source: Patient
Abdomen/GI: Bloody Stools, Black Stools and Other (change in bowel habits)
A 10 point review of systems was completed, and was negative except as per HPI.
Physical Exam
Vital Signs
Temp 98.2 F 02/15/24 07:21
Pulse 73 02/15/24 07:21
Resp Rate 18 02/15/24 07:21
Blood pressure 137/88 02/15/24 07:21
SaO2 96 02/15/24 07:21
02/14/24 02/15/24 02/16/24
06:59 06:59 06:59
Actual Weight 97.296 kg
Body Mass Index (BMI) 29.9
Lab Results / Allergies
02/15/24 07:16
02/15/24 07:16
WBC 6.3 10^3/uL (4.8-10.8) 02/15/24 07:16
Hgb 14.0 g/dL (13.0-18.0) 02/15/24 07:16
Hct 41.8 % (39.0-52.0) 02/15/24 07:16
Plt Count 270 10^3/uL (130-400) 02/15/24 07:16
Abs Immat Gran (auto) 0.0 10^3/uL (0-0.05) 02/14/24 11:36
Neutrophils % 73.0 % (42.2-75.2) 02/14/24 11:36
Allergy/AdvReac Type Severity Reaction Status Date / Time
ketoconazole Allergy 'adverse Verified 08/02/23 15:06
reaction'
Physical Exam
General: Well Developed, Well Nourished and No Apparent Distress
GI: Soft, Non Tender and Non Distended
Rectal: Other (tip of the finger can feel rectal mass, no gross blood noted)
Skin: Warm and Dry
Neuro: AO x 3
Data Reviewed
-
CT Scan: Image Personally Visualized and interpreted, Report Reviewed by me and Discussed with Patient
Labs: Labs Reviewed by me, Discussed with Physician and Discussed with Patient
Old Records: Reviewed
Assessment / Plan
-
Assessment: 83-year-old male with a significant past medical history of prostate cancer status post prostatectomy and immunotherapy, presents to [facility] with a few weeks of rectal bleeding and dark stools, found to have a mass in the rectum
Plan:
-Plan for colonoscopy, this 02/17/[address] Ralph
-Start clears in AM
-Bowel prep tomorrow
-CT chest for metastatic work up
-MRI abdomen for further liver lesion workup per heme onc
-PSA and CEA pending
[2024-02-15 11:03] LABS: Direct Bilirubin 0.3 mg/dl (0.0-0.4)
[2024-02-15 12:09] LABS: PSA, Total - Diagnostic 8.38 ng/ml (0.0-4.0)
[2024-02-15] MEDS: ATIVAN 0.5 MG PO ×2 (15:01→21:23)
[2024-02-15 15:55] VITALS: BP 137/83
--- NOTE | 2024-02-15 16:07 | CM ---
Patient seen at bedside.
IA completed.
Dx: GI bleeding
PMH: metastatic prostate ca s/p prostatectomy and immunotherapy
He stated will have colonoscopy on Thursday
Lives in a 2 story home with his , first floor set up
PLOF: Independent, no assistive device, drives
DME: shower chair
Denies hh/rehab
PCP: Saqib Hicks
Pharmacy: [facility], [address], [place]
PLAN: home, no needs anticipated
to transport
[2024-02-15 19:37] VITALS: BP 121/87
[2024-02-15] MEDS: LEXAPRO 10 MG PO (21:23)
[2024-02-15] MEDS: DESYREL 150 MG PO (21:23)
[2024-02-15 23:41] VITALS: BP 114/63
[2024-02-16] VITALS (8 sets, daily range): BP systolic 63–149; BP diastolic 68–86; BMI 29.5
[2024-02-16 07:23] LABS: Hematocrit 37.6 % (39.0-52.0); Mean Corp Hgb Conc. 34.6 g/dL (33.0-37.0); Mean Corpuscular Hgb 29.1 pg (27.0-31.0); Mean Corpuscular Volume 84.3 fL (80.0-94.0); Mean Platelet Volume 8.7 fL (7.4-10.4); Platelet Count 244 10^3/uL (130-400); Red Blood Cell Count 4.46 10^6/uL (4.70-6.10); Red Cell Dist. Width 12.9 % (11.5-14.5); White Blood Cell Count 5.6 10^3/uL (4.8-10.8)
[2024-02-16 07:55] LABS: ALT (SGPT) 21 U/L (0-50); AST (SGOT) 33 U/L (17-59); Albumin 3.9 g/dl (3.5-5.0); Alkaline Phosphatase 50 U/L (38-126); Blood Urea Nitrogen 12 mg/dl (9-20); Calcium 8.6 mg/dl (8.4-10.2); Carbon Dioxide 27 mmol/L (22-30); Chloride 100 mmol/L (98-107); Estimated Creatinine Clearance 60 ml/min; Glucose 103 mg/dl (70-99); Potassium 4.1 mmol/L (3.5-5.1); Sodium 134 mmol/L (135-145); Total Bilirubin 1.7 mg/dl (0.2-1.3); Total Protein 6.4 g/dl (6.3-8.2); eGFR > 60.00
[2024-02-16] MEDS: TOPROL XL 25 MG PO (08:35)
--- NOTE | 2024-02-16 09:02 | W.PN.CRS1 ---
Today's Communication / Plan
-
-As below
Assessment/Plan
-
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
and metastasis to rib s/p radiation in 2020; PSA has been slowly rising recently, but oncology at [place] is currently just monitoring) who presents with blood per rectum. He first noticed melena 2 to 3 weeks ago and then developed red blood for
the last 2 to 3 days, which prompted him to go to the ED. Hemoglobin 13.7. A CTA was done revealing a right-sided rectal mass as well as a lesion in the liver, concerning for metastasis, no active bleeding
AFVSS, ABD soft, nondistended, nontender, no palpable inguinal LAD; rectal�normal tone, no gross blood, palpable nodularity, not easily mobile, in the right to posterior aspect of the mid rectum, about 6-7 cm from the anal verge
Hb 13.0 to 14.0
� New diagnosis of rectal mass, concerning for rectal cancer; lesion in the liver concerning for met
�Plan for colonoscopy tomorrow; clears today with bowel prep this afternoon
�Follow-up CEA
�MRI abdomen - 1.6 cm solitary hepatic mass; recommend IR biopsy to confirm this is colon versus prostate
�Appreciate oncology
� Okay for DVT PPx
� Encourage OOB/IS
� Appreciate hospitalist
Subjective Data
Subjective Data
Date of Service: February 16, 2024
No overnight events.
Pain controlled.
Denies nausea/vomiting. Tolerating diet.
+flatus +BMs +voiding
Pt is OOB.
Objective Data
-
Vital Signs
Temp Pulse Resp BP Pulse Ox
97.9 F 72 18 128/80 95
02/16/24 03:48 02/16/24 08:35 02/16/24 03:48 02/16/24 08:35 02/16/24 03:48
Intake & Output
02/15/24 02/16/24 02/17/24
06:59 06:59 06:59
Intake Total 480 / 480 1600 / 1600
Balance 480 / 480 1600 / 1600
Intake:
Oral fluids 480 / 480 1600 / 1600
Other:
Number of approximated MODERATE 2 2
amounts of urine
Lab Results
02/16/24 06:36
02/16/24 06:36
Physical Exam
-
General: No Acute Distress and AOx3
HEENT: Grossly Normal
Abdomen: Soft, Non Distended and Non Tender
Skin: Warm and Dry
--- NOTE | 2024-02-16 10:43 | W.PN.HOSP.TC ---
Today's Communication/Plan
-
IR for liver biopsy. Colonoscopy in a.m.
Assessment / Plan
Assessment / Plan
Physical exam:
General: Well Developed, Well Nourished and No Apparent Distress
HEENT: Normocephalic, Atraumatic and Moist Mucous Membranes
Respiratory: Clear to Auscultation; Negative Wheezes, Rales or Rhonchi
Cardiac: Regular Rhythm and S1/S2
GI: Soft, Nontender and Nondistended
Musculoskeletal: No Clubbing, No Cyanosis and No Edema
Neuro: Awake, Alert and Oriented
Psych: Anxious
A/P:
Rectal mass:
Plan for colonoscopy on 02/16
Appreciated colorectal surgery consult
Metastatic prostate cancer:
Oncology consult appreciated
MRI with 1.6 cm mass on right lobe--> IR consult for liver biopsy
Right medial lower lobe 4 mm node on the lung
PSA 8.3
CEA pending
Hypertension and history of SVT:
Continue metoprolol succinate 25 mg p.o. daily
Hold HCTZ
Cardiac monitoring
Depression and anxiety:
Continue escitalopram 10 mg p.o. daily
Continue trazodone 150 mg p.o. nightly
Continue lorazepam 0.5 mg 3 times daily as needed
Ascending aortic aneurysm and mild aortic regurgitation:
Monitor clinically and with serial images as outpatient
DVT prophylaxis:
SCDs
CODE STATUS:
Full code
Anticipated Discharge: Within 24 hours
Subjective/Interval History
-
Date of Service: February 16, 2024
Patient doing well today. Afebrile. No further rectal bleeding.
Objective Data
-
Labs:
Laboratory Results
02/16/24
06:36
WBC 5.6
Hgb 13.0
Hct 37.6 L
Plt Count 244
Sodium 134 L
Potassium 4.1
Chloride 100
Carbon Dioxide 27
BUN 12
Creatinine 1.0
Glucose 103 H
Calcium 8.6
Total Bilirubin 1.7 H
AST 33
ALT 21
Alkaline Phosphatase 50
Vital Signs:
Vital Signs
Temp Pulse Resp BP Pulse Ox
97.2 F 72 17 128/80 97
02/16/24 07:20 02/16/24 08:35 02/16/24 07:20 02/16/24 08:35 02/16/24 07:20
I&O
02/15/24 02/16/24 02/17/24
06:59 06:59 06:59
Intake Total 480 / 480 1600 / 1600
Balance 480 / 480 1600 / 1600
--- NOTE | 2024-02-16 13:03 | CM ---
Patient seen at bedside.
Clear liq diet
Colonoscopy tomorrow
No needs anticipated
PLAN: home, no needs
to transport
[2024-02-16 13:17] LABS: PT 14.5 Sec (11.4-14.6)
[2024-02-16] MEDS: NULYTELY SOLUTION 4 LITERS PO (13:27)
--- NOTE | 2024-02-16 15:55 | W.PN.UPDATE ---
Update Note
Progress Note Update
- US guided biopsy of subcapsular R hepatic lobe lesion performed.
- 4 18g core samples obtained.
- Patient tolerated well. 3 hrs bedrest.
[2024-02-16 17:56] LABS: CEA 6.83 ng/ml
[2024-02-16] MEDS: DESYREL 150 MG PO (21:32)
[2024-02-16] MEDS: LEXAPRO 10 MG PO (21:32)
[2024-02-16] MEDS: ATIVAN 0.5 MG PO (21:32)
[2024-02-17 03:10] VITALS: BP 132/80
[2024-02-17 05:37] LABS: Hematocrit 36.9 % (39.0-52.0); Hemoglobin 12.7 g/dL (13.0-18.0); Mean Corp Hgb Conc. 34.4 g/dL (33.0-37.0); Mean Corpuscular Volume 84.2 fL (80.0-94.0); Mean Platelet Volume 8.8 fL (7.4-10.4); Platelet Count 227 10^3/uL (130-400); Red Blood Cell Count 4.38 10^6/uL (4.70-6.10); Red Cell Dist. Width 12.6 % (11.5-14.5); White Blood Cell Count 5.9 10^3/uL (4.8-10.8)
[2024-02-17 05:47] LABS: Blood Urea Nitrogen 12 mg/dl (9-20); Calcium 8.4 mg/dl (8.4-10.2); Carbon Dioxide 28 mmol/L (22-30); Chloride 100 mmol/L (98-107); Estimated Creatinine Clearance 60 ml/min; Glucose 106 mg/dl (70-99); Magnesium 2.1 mg/dl (1.6-2.3); Potassium 4.2 mmol/L (3.5-5.1); Sodium 134 mmol/L (135-145); eGFR > 60.00
--- NOTE | 2024-02-17 07:10 | W.PN.ONC2 ---
Today's Communication / Plan
-
Await path review and needs outpt F/U to discuss Tx options based on path.
Impression
Impression
Assessment/Plan
Rectal mass
Lower GI Bleed
right lobe liver lesion
Metastatic Prostate cancer, GL6 to lung
Plan
Plan
Awaiting Colonoscopy. liver Bx path.
Stable for D/C with outpt F/U. Card provided.
Hgb stable, no evidence of active bleeding at this time.
Rising PSA noted. Mildly elevated CEA also noted.
Subjective/Objective
Chief Complaint
ACS Heme Onc
Subjective
No c/o. Hoping to go hiome this afternoon s/p colonoscopy. S/P liver Bx yesterday.
Vital Signs:
Vital Signs
Temp Pulse Resp BP Pulse Ox
98 F 71 12 132/80 96
02/17/24 03:10 02/17/24 03:10 02/17/24 03:10 02/17/24 03:10 02/17/24 03:10
Lab Results:
Laboratory Data
WBC 5.9 10^3/uL (4.8-10.8) 02/17/24 05:05
Hgb 12.7 g/dL (13.0-18.0) L 02/17/24 05:05
Plt Count 227 10^3/uL (130-400) 02/17/24 05:05
PT 14.5 Sec (11.4-14.6) 02/16/24 12:32
INR 1.10 02/16/24 12:32
eGFR > 60.00 02/17/24 05:05
Laboratory Tests
02/15/24
07:16
Carcinoembryonic Ag 6.83
Prostate Specific Ag 8.38 H
[2024-02-17 07:20] VITALS: BP 132/79
[2024-02-17] MEDS: TOPROL XL 25 MG PO (08:15)
--- NOTE | 2024-02-17 09:02 | W.PN.HOSP.TC ---
Today's Communication/Plan
-
Colonoscopy. Discharge planning
Assessment / Plan
Assessment / Plan
Physical exam:
General: Well Developed, Well Nourished and No Apparent Distress
HEENT: Normocephalic, Atraumatic and Moist Mucous Membranes
Respiratory: Clear to Auscultation; Negative Wheezes, Rales or Rhonchi
Cardiac: Regular Rhythm and S1/S2
GI: Soft, Nontender and Nondistended
Musculoskeletal: No Clubbing, No Cyanosis and No Edema
Neuro: Awake, Alert and Oriented
Psych: Anxious
A/P:
Rectal mass:
Plan for colonoscopy today on 02/16
Appreciated colorectal surgery consult
Appreciated GI consult
If everything goes well he could potentially go after colonoscopy today.
Metastatic prostate cancer:
Oncology consult appreciated
MRI with 1.6 cm mass on right lobe--> IR consult for liver biopsy--> status post liver biopsy on 02/15
Right medial lower lobe 4 mm node on the lung
PSA 8.3
CEA 6.83
Hypertension and history of SVT:
Continue metoprolol succinate 25 mg p.o. daily
Hold HCTZ
Cardiac monitoring
Depression and anxiety:
Continue escitalopram 10 mg p.o. daily
Continue trazodone 150 mg p.o. nightly
Continue lorazepam 0.5 mg 3 times daily as needed
Ascending aortic aneurysm and mild aortic regurgitation:
Monitor clinically and with serial images as outpatient
DVT prophylaxis:
SCDs
CODE STATUS:
Full code
Anticipated Discharge: Today
Subjective/Interval History
-
Date of Service: February 17, 2024
Patient denies any abdominal pain nausea or vomiting. He had bowel prep today. No chest pain or shortness of breath.
Objective Data
-
Labs:
Laboratory Results
02/17/24
05:05
WBC 5.9
Hgb 12.7 L
Hct 36.9 L
Plt Count 227
Sodium 134 L
Potassium 4.2
Chloride 100
Carbon Dioxide 28
BUN 12
Creatinine 1.0
Glucose 106 H
Calcium 8.4
Vital Signs:
Vital Signs
Temp Pulse Resp BP Pulse Ox
98 F 77 12 132/79 96
02/17/24 03:10 02/17/24 08:15 02/17/24 03:10 02/17/24 08:15 02/17/24 03:10
I&O
02/16/24 02/17/24 02/18/24
06:59 06:59 06:59
Intake Total 1600 / 1600 1265 / 1265
Output Total 250 / 250
Balance 1600 / 1600 1015 / 1015
[2024-02-17 11:10] VITALS: BP 135/82
[2024-02-17 15:56] VITALS: BP 90/63
[2024-02-17 16:00] VITALS: BP 99/78
[2024-02-17 16:15] VITALS: BP 134/76
--- NOTE | 2024-02-17 16:33 | CM ---
Patient returned to room from colonoscopy
IMM explained & signed. In chart.
PLAN: Home, no needs.
to transport
--- NOTE | 2024-02-17 17:03 | W.DCSUMMARY ---
Discharge Summary
Discharge Data
Date of Admission: 02/14/24
Date of Discharge: 02/17/24
-
Pending Results: No
Hospital Course
Patient 83 years old male with history of metastatic prostate cancer, hypertension, hyperlipidemia, came into the hospital with rectal bleeding. Patient had colorectal surgery and oncology consulted. She had abdominal MRI and CT scan of the chest
for further evaluation and found to have a liver mass and subcentimeter pulmonary nodule. IR consult and he had a liver biopsy done and results will be follow-up as outpatient. He also underwent colonoscopy and he was found lesions in the mid
rectum and biopsy taken and will be follow-up as outpatient. Otherwise, patient is hemodynamically stable and feels back to his baseline. He will be discharged in stable condition today and will follow-up results as outpatient with colorectal
surgery and oncology. 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 No other events were noticed.
Discharge duration: 35 minutes
Discharge Plan
-
Patient Disposition: Home (Routine Discharge)
Discharge Diagnosis/Procedures: Acute lower gastrointestinal bleed. Rectal mass. Liver mass. Metastatic prostate cancer.
Diet: Low Cholesterol
Activity: As tolerated
Blood Work: Please PCP to order CBC, BMP within 1 week
Referrals:
Saqib Hicks, DO [Family Provider] - in less than 1 week
Prescriptions:
Continued
celecoxib [Celebrex] 200 mg Capsule
200 mg PO DAILYPRN PRN (Reason: mild pain)
atorvastatin [Lipitor] 20 mg Tablet
20 mg PO HS
calcium carbonate 500 mg calcium (1,250 mg) Tablet
500 mg PO DAILY
trazodone 150 mg Tablet
150 mg PO HS
hydrochlorothiazide 25 mg Tablet
12.5 mg PO MOWEFR@0800
metoprolol succinate 25 mg Tablet Extended Release 24 Hr
25 mg PO DAILY
escitalopram oxalate [Lexapro] 10 mg Tablet
10 mg PO HS
cholecalciferol (vitamin D3) [Vitamin D3] 25 mcg (1,000 unit) Tablet
25 mcg PO DAILY
Prolia 60 mg/mL Syringe
60 mg SC [id number]
Discharge Orders:
Discharge Patient (As Directed); Ordered 02/17/24
Ordered By: Jayesh Escobar
Discharge Date and Time
Discharge Date/Time: 02/17/24 17:32
Print Language: TURKMEN
== END 2024-02-17 17:32 | disposition home or self-care (01) | DRG 375 ==
LOC: 2 NORTH 17:15
PROVIDERS: Radiology Diagnostic Radiology; ADMITTING PHYSICIAN Internal Medicine; ATTENDING PHYSICIAN Hospitalist; CONSULT PHYSICIAN Surgery; EMERGENCY PHYSICIAN Student in an Organized Health Care Education/Training Program; FAMILY PHYSICIAN Internal Medicine; OTHER PHYSICIAN Internal Medicine Hematology & Oncology
PROC: 0FB03ZX Excision of Liver, Percutaneous Approach, Diagnostic (ICD-10-PCS; 2024-02-16)
PROC: 0DBM8ZX Excision of Descending Colon, Via Natural or Artificial Opening Endoscopic, Diagnostic (ICD-10-PCS; 2024-02-17)
DX: C18.9 Malignant neoplasm of colon, unspecified (principal); C78.7 Secondary malignant neoplasm of liver and intrahepatic bile duct; K92.2 Gastrointestinal hemorrhage, unspecified; I10 Essential (primary) hypertension; I71.21 Aneurysm of the ascending aorta, without rupture; F41.9 Anxiety disorder, unspecified; F32.A Depression, unspecified; D12.4 Benign neoplasm of descending colon; K64.4 Residual hemorrhoidal skin tags
CPT/HCPCS: 88305; 88307; 47000; 71260; 74174; 74183; 76942; 80048; 80053; 82248; 82378; 83735; 84153; 84484; 85018; 85025; 85027; 85610; 87045; 87046; 87077; 87427; 88333; 88341; 88342; 93005; 99152; 99285; A9575; Q9967

== ENCOUNTER → 2024-02-25 07:57 | Outpatient (REF) | payer MEDICARE, OTHER, SELFPAY ==
[2024-02-25 09:11] LABS: % Basophils 0.9 % (0-2); % Eosinophils 1.3 % (0-6); % Immature Granulocytes 1.5 % (0-0.5); % Lymphocytes 14.8 % (20.5-51.1); % Monocytes 11.1 % (1.7-9.3); % Neutrophils 70.4 % (42.2-75.2); Absolute Basophils 0.1 10^3/uL (0-0.2); Absolute Eosinophils 0.1 10^3/uL (0-0.7); Absolute Immature Granulocytes 0.1 10^3/uL (0-0.05); Absolute Lymphocytes 0.8 10^3/uL (1.2-3.4); Absolute Monocytes 0.6 10^3/uL (0.1-0.6); Absolute Neutrophils 3.8 10^3/uL (1.4-6.5); Hematocrit 40.9 % (39.0-52.0); Hemoglobin 13.8 g/dL (13.0-18.0); Mean Corp Hgb Conc. 33.7 g/dL (33.0-37.0); Mean Corpuscular Hgb 29.2 pg (27.0-31.0); Mean Corpuscular Volume 86.5 fL (80.0-94.0); Mean Platelet Volume 9.2 fL (7.4-10.4); Nucleated Red Blood Cells % 0 % (-); Platelet Count 256 10^3/uL (130-400); Red Blood Cell Count 4.73 10^6/uL (4.70-6.10); Red Cell Dist. Width 12.8 % (11.5-14.5); White Blood Cell Count 5.4 10^3/uL (4.8-10.8)
[2024-02-25 10:49] LABS: PSA, Total - Diagnostic 9.34 ng/ml (0.0-4.0)
[2024-02-25 10:51] LABS: Testosterone, Total 37.7 ng/dl (72-623)
[2024-02-25 11:06] LABS: Blood Urea Nitrogen 20 mg/dl (9-20); Calcium 9.7 mg/dl (8.4-10.2); Carbon Dioxide 27 mmol/L (22-30); Chloride 97 mmol/L (98-107); Glucose 120 mg/dl (70-99); Potassium 4.5 mmol/L (3.5-5.1); Sodium 136 mmol/L (135-145); eGFR 54.51
== END ==
LOC: REG 07:57
PROVIDERS: ATTENDING PHYSICIAN Nurse Practitioner Adult Health; FAMILY PHYSICIAN Internal Medicine; REFERRING PHYSICIAN Surgery
DX: R97.20 Elevated prostate specific antigen [PSA] (principal); C61 Malignant neoplasm of prostate
CPT/HCPCS: 36415; 80048; 84153; 84403; 85025

== ENCOUNTER → 2024-04-01 10:36 | Outpatient (REF) | payer MEDICARE, OTHER, SELFPAY ==
[2024-04-01 11:12] LABS: % Basophils 0.6 % (0-2); % Eosinophils 0.9 % (0-6); % Immature Granulocytes 0.5 % (0-0.5); % Lymphocytes 13.5 % (20.5-51.1); % Monocytes 12.4 % (1.7-9.3); % Neutrophils 72.1 % (42.2-75.2); Absolute Eosinophils 0.1 10^3/uL (0-0.7); Absolute Lymphocytes 0.9 10^3/uL (1.2-3.4); Absolute Monocytes 0.8 10^3/uL (0.1-0.6); Absolute Neutrophils 4.7 10^3/uL (1.4-6.5); Hemoglobin 12.8 g/dL (13.0-18.0); Mean Corp Hgb Conc. 33.7 g/dL (33.0-37.0); Mean Corpuscular Hgb 29.2 pg (27.0-31.0); Mean Corpuscular Volume 86.6 fL (80.0-94.0); Mean Platelet Volume 8.8 fL (7.4-10.4); Nucleated Red Blood Cells % 0 % (-); Platelet Count 226 10^3/uL (130-400); Red Blood Cell Count 4.39 10^6/uL (4.70-6.10); Red Cell Dist. Width 12.9 % (11.5-14.5); White Blood Cell Count 6.5 10^3/uL (4.8-10.8)
[2024-04-01 11:35] LABS: ALT (SGPT) 14 U/L (0-50); AST (SGOT) 27 U/L (17-59); Alkaline Phosphatase 48 U/L (38-126); Blood Urea Nitrogen 17 mg/dl (9-20); Calcium 8.9 mg/dl (8.4-10.2); Carbon Dioxide 28 mmol/L (22-30); Chloride 99 mmol/L (98-107); Glucose 91 mg/dl (70-99); Potassium 4.6 mmol/L (3.5-5.1); Sodium 135 mmol/L (135-145); Total Bilirubin 1.2 mg/dl (0.2-1.3); Total Protein 6.6 g/dl (6.3-8.2); eGFR > 60.00
[2024-04-01 12:08] LABS: PSA, Total - Diagnostic 4.87 ng/ml (0.0-4.0)
== END ==
LOC: REG 10:36
PROVIDERS: ATTENDING PHYSICIAN Internal Medicine
DX: C61 Malignant neoplasm of prostate (principal); C78.7 Secondary malignant neoplasm of liver and intrahepatic bile duct
CPT/HCPCS: 36415; 80053; 84153; 85025

== ENCOUNTER 2024-05-10 15:41 | Inpatient (IN) | payer MEDICARE, OTHER, SELFPAY ==
[2024-05-10] VITALS (18 sets, daily range): BP systolic 111–161; BP diastolic 51–115; BMI 28.5
--- NOTE | 2024-05-10 11:29 | ED.GENMED ---
History of Present Illness
<DIANNA Mclain - Last Filed: 05/11/24 09:14>
General
Chief Complaint: Breathing Problem
Source: family
Exam Limitations: none
Time Seen by Provider: 05/10/24 11:29
Nursing documentation reviewed up to this point in time: agreed with
History of Present Illness
History of Present Illness:
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
brought to the ER by EMS for evaluation. at bedside reports patient started with diarrhea yesterday has had persistent diarrhea was very weak. Upon my exam patient with garbled speech he was able to state name clearly however when asked
other questions his speech was garbled and did not make sense. He was however able to follow commands.
reports patient is extremely sharp. I was also called into patient's room because of an episode of rapid A-fib. Patient has no prior history of A-fib. He is not on blood thinners.
stroke alert was called with new onset garbled speech
Past History
<DIANNA Mclain - Last Filed: 05/11/24 09:14>
Past History
ED Past Medical History: Cancer (Prostate diagnosed in 2001), HTN and Hypercholesterolemia
ED Past Surgical History: Cholecystectomy, Orthopedic (left knee repair, partial fusion lumbar spine) and Urological
Social History
Tobacco: Non-smoker
Alcohol: None
Drug: None
Living: with family
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
Family History
Family History: Other (reviewed and noncontributory)
Review of Systems
<DIANNA Mclain - Last Filed: 05/11/24 09:14>
Review of Systems
Allergies reviewed?: Yes
Other source history: family
All Other Systems: ROS reviewed and negative except as documented in HPI and ROS
Constitutional: Reports fatigue
Respiratory: Reports no symptoms
Cardiac: Reports no symptoms
ABD/GI: Reports diarrhea
: Reports no symptoms
Neurological: Reports other (garbled speech presented just prior to my exam along with change in ms )
Psychiatric: Reports no symptoms
Phy Exam
<DIANNA Mclain - Last Filed: 05/11/24 09:14>
General Physical Exam
General Presentation: no apparent distress
General age: appears stated age
General Skin: warm and dry
General Habitus: elderly
General Mental: other (alert to name slightly confused to questions )
General Hydration: dry mucous membranes
Cardiovascular Exam
Cardiovascular Exam: tachycardia
Pulmonary Exam
Pulmonary Exam: lungs clear and no respiratory distress
Gastrointestinal Exam
Gastrointestinal Exam: non tender and soft
Neurological Exam
Neurological Exam: alert and other (Patient awake able to answer certain questions but confused with intermittent garbled speech no upper or lower extremity drift or weakness noted)
NIH Stroke Score
Level of Consciousness: 0 - Alert
LOC questions: 1-Answers one correctly
LOC Commands: 0-Performs both correctly
Best Gaze: 0-Normal
Visual Saunders: 0=Normal, no visual loss
Facial palsy: 0=Normal, symmetrical
Motor - Right Arm: 0=No drift 10 seconds
Motor - Left Arm: 0=No drift 10 seconds
Motor - Right Le-No drift 5 seconds
Motor - Left Le-No drift 5 seconds
Limb Ataxia: 0-Absent
Sensation: 0-Normal
Best Language: 1-Mild aphasia
Dysarthria: 0-Normal
Extinction and Inattention: 0-No abnormality
Total Score:: 2
Musculoskeletal Exam
Musculoskeletal Exam: full ROM
Skin Exam
Skin Exam: normal color and warm/dry
Psychiatric Exam
Psychiatric Exam: normal mood/affect
Scores
<DIANNA Mclain - Last Filed: 05/11/24 09:14>
Heart Failure Risk
Heart Failure Risk Score: Not Applicable
Course
<DIANNA Mclain - Last Filed: 05/11/24 09:14>
Orders/Labs/Results
Orders:
Orders
05/10/24
Electrocardiogram (*1) Stat
Reason for Study: Chest Pain
Comment: DONE
Electrocardiogram (*1) Stat
Reason for Study: Chest Pain
Comment: DONE
05/10/24 11:13
Electrocardiogram (*1) Urgent
Reason for Study: Shortness of Breath
05/10/24 11:14
EKG- Treatment ONCE
05/10/24 11:17
Complete Blood Count/With Diff Urgent
Comprehensive Metabolic Panel Urgent
Manual Differential Urgent
NT-proBNP Urgent
Troponin I Urgent
05/10/24 11:35
Ondansetron Injectable [Zofran] 4 mg .ROUTE .STK-MED ONE
05/10/24 11:37
CT HEAD STROKE ALERT W/o Cont Urgent
Comment:
Reason For Exam: change in ms garbled speech
05/10/24 11:43
0.9% Sodium Chloride 1000 ml [Nss] 1,000 ml IV BOLUS
05/10/24 12:01
Portable Chest Xray [CR Chest Portable - 1 View] Urgent
Comment:
Reason For Exam: weakness
Reason Study Needs to be Portable: Unable to Transport
05/10/24 12:14
Lactic Acid Q4H
Comment: CANCEL 2nd LACTIC ACID IF 1st LACTIC ACID IS LESS THAN 2
Blood Culture Q30M
RAQUEL Source: Blood/Venous
Specimen Description:
Blood Culture Q30M
RAQUEL Source: Blood/Venous
Specimen Description:
05/10/24 12:22
Lorazepam [Ativan] 0.5 mg IV NOW STA
05/10/24 13:08
COVID-19 Antigen Urgent
Source: Nasal Swab
Influenza A+B Rapid Molecular Urgent
RAQUEL Source: Nasal Swab
Specimen Description:
0.9% Sodium Chloride 1000 ml [Nss] 1,000 ml IV BOLUS
05/10/24 13:09
0.9% Sodium Chloride 500 ml [Nss] 500 ml IV BOLUS
05/10/24 14:06
UA Reflex to Culture [Urinalysis Reflex To Culture] Urgent
Date Specimen was Collected: 05/10/24
Time Specimen was Collected: 14:03
Urine Microscopic Reflex Cult Urgent
C DIFF [C difficile Antigen & Toxins] Urgent
RAQUEL Source: Feces/Stool
Specimen Description:
Date Specimen was Collected: 05/10/24
Time Specimen was Collected: 14:03
Norovirus by PCR Urgent
RAQUEL Source: Feces/Stool
Specimen Description:
Date Specimen was Collected: 05/10/24
Time Specimen was Collected: 14:03
Stool Culture Urgent
RAQUEL Source: Feces/Stool
Specimen Description:
Date Specimen was Collected: 05/10/24
Time Specimen was Collected: 14:03
Urine Culture Urgent
RAQUEL Source: U
Specimen Description:
Date Specimen was Collected: 05/10/24
Time Specimen was Collected: 14:03
05/10/24 14:43
Lorazepam [Ativan] 0.5 mg IV NOW STA
05/10/24 15:13
Cefepime HCl [Maxipime] 2,000 mg IV NOW STA
05/10/24 15:14
Abdomen/Pelvis w Contrast CT [CT Abd/pelvis W Iv Cont] Routine
Comment:
Reason For Exam: diarrhea
CARDIOLOGY CONSULT Routine
Consulting Provider: Baltazar Yanes
Was physician already notified: Yes
ONCOLOGY CONSULT Routine
Consulting Provider: Destinye Sanchez
Was physician already notified: Yes
05/10/24 15:33
Admit/Transfer Patient As Directed
Co-Sign Provider:
Level of Care: Inpatient admission
Assign to:: IMU- Intermediate Care
Physician / Group: doroteo
Diagnosis: diarrhea
Reason for Hospitalization: diarrhea
-atrial fib with RVR
Expected length of stay greater than two midnights?: Yes
ELOS- Estimated Length of Stay in days: 3
I certify the patient meets the requirements for IP care: Yes
PRN Pain Medication Management As Directed
May give lesser potent ordered pain med per pt: Yes
preference::
Protocol:: Medication orders for pain may be administered in a
manner that supports deferring to patient preference
when the pt is:
- Requesting an ordered lesser potent pain medication.
Least to most potent pain medications are defined
as: acetaminophen < NSAID < tramadol < opioids
(morphine, oxycodone, hydromorphone).
- Requesting a lesser dose of the same medication IF
ORDERED.
- Requesting a less intrusive route of administration
if both routes are prescribed by the provider (PO <
IV).
05/10/24 15:34
Code Status As Directed
Resuscitation Status: Do not resuscitate
Reached after discussion with pt or family/Healthcare POA: Yes
05/10/24 15:35
Sterile Water [Sterile Water For Injection] 10 ml IV NOW STA
DNR Bracelet Application ONCE
05/10/24 17:26
Lactic Acid Q4H
Comment: CANCEL 2nd LACTIC ACID IF 1st LACTIC ACID IS LESS THAN 2
05/10/24 17:31
Rapid Strep Group A Stat
RAQUEL Source: Throat/Pharynx
Specimen Description:
Date Specimen was Collected: 05/10/24
Time Specimen was Collected: 16:34
05/10/24 18:41
0.9% Sodium Chloride 1000 ml [Nss] 1,000 ml IV 130 mls/hr
Acetaminophen [Tylenol] 650 mg PO Q4HPRN PRN
Lorazepam [Ativan] 0.5 mg PO BIDPRN PRN
Ondansetron Injectable [Zofran] 4 mg IV Q6HPRN PRN
05/10/24 18:41
INFECTIOUS DISEASE CONSULT Routine
Consulting Provider: Chanda Rivera
Was physician already notified: Yes
Activity As Directed
Activity Level: As Tolerated
Neurological Checks As Directed
Frequency: Per unit guidelines
Additional Instructions:: q4h x 4 then q shift
Pneumatic Compression Sleeves As Directed
Type: Knee high
Vital Signs As Directed
Frequency: Per unit guidelines
DX Deep Vein Thrombosis Video Routine
05/10/24 20:00
MetroNIDAZOLE 500 MG/100 ML [Flagyl 500 mg] 100 ml IV Q8H
05/10/24 22:00
Atorvastatin [Lipitor] 20 mg PO HS
Escitalopram Oxalate [Lexapro] 10 mg PO HS
Lorazepam [Ativan] 0.5 mg PO HS
Trazodone [Desyrel] 150 mg PO HS
05/11/24 02:00
Cefepime HCl [Maxipime] 2,000 mg IV Q8H
05/11/24 02:55
Basic Metabolic Panel IN AM
Complete Blood Count/No Diff IN AM
05/11/24 Breakfast
NPO
Allow oral meds: Yes
Allow clear liquids: Sips of Clears
05/11/24 08:00
Calcium Carbonate/Vitamin D3 [Oscal 500 + D] 500 mg PO DAILY
Metoprolol Xl [Toprol Xl] 25 mg PO DAILY
Prednisone [Deltasone] 5 mg PO DAILY
abiraterone 1,000 mg PO DAILY
05/12/24 06:00
Basic Metabolic Panel IN AM
Complete Blood Count/No Diff IN AM
05/13/24 06:00
Basic Metabolic Panel IN AM
Complete Blood Count/No Diff IN AM
05/14/24 06:00
Basic Metabolic Panel IN AM
Complete Blood Count/No Diff IN AM
Abnormal Lab Results
05/10/24 05/10/24 05/10/24
11:17 11:35 12:14
WBC 0.6 L* 10^3/uL
(4.8-10.8)
RBC 3.86 L 10^6/uL
(4.70-6.10)
Hgb 11.2 L g/dL
(13.0-18.0)
Hct 32.8 L %
(39.0-52.0)
Abs Neuts (Manual) 0.0 L* 10^3/uL
(1.4-6.5)
Segmented Neutrophils 11 L %
(42-75)
Lymphocytes (Manual) 67 H %
(20-51)
Monocytes (Manual) 18 H %
(2-9)
Sodium 129 L mmol/L
(135-145)
Chloride 95 L mmol/L
(98-107)
Glucose 142 H mg/dl
(70-99)
Lactic Acid 2.6 H mmol/L
(0.7-2.0)
Total Bilirubin 2.5 H mg/dl
(0.2-1.3)
Total Protein 6.0 L g/dl
(6.3-8.2)
Urine Ketones
Ur Occult Blood Reflex
Urine Bilirubin
Urine Urobilinogen
Leukocyte Esterase Rfl
Urine Bacteria (Reflex)
Urine Albumin (Reflex)
POC Glucose 139 H mg/dl
(70-99)
05/10/24
14:06
WBC
RBC
Hgb
Hct
Abs Neuts (Manual)
Segmented Neutrophils
Lymphocytes (Manual)
Monocytes (Manual)
Sodium
Chloride
Glucose
Lactic Acid
Total Bilirubin
Total Protein
Urine Ketones 1+ A
(Negative)
Ur Occult Blood Reflex 1+ A
(Negative)
Urine Bilirubin 1+ A
(Negative)
Urine Urobilinogen 2+ A
(Neg - 1+)
Leukocyte Esterase Rfl 1+ A
(Negative)
Urine Bacteria (Reflex) Few A
(Negative)
Urine Albumin (Reflex) 2+ A
(Neg - Trace)
POC Glucose
05/10/24 11:17
05/10/24 11:17
Vital Signs
Initial and Last Documented VS:
Initial Vital Signs
Temp Pulse Resp Pulse Ox
98.9 F 108 20 98
05/10/24 11:10 05/10/24 11:10 05/10/24 11:10 05/10/24 11:10
Last Documented Vital Signs
Temp Pulse Resp BP Pulse Ox
98.9 F 112 24 108/84 96
05/11/24 07:30 05/11/24 06:15 05/11/24 06:15 05/11/24 06:00 05/11/24 03:57
Tube And Manifold Builder consulted with Physician
Tube And Manifold Builder consulted with physician?: Yes
Name of Physician Consulted: Deon
<Javy Chavarria, DO - Last Filed: 05/10/24 11:56>
Orders/Labs/Results
Orders:
Orders
05/10/24
Electrocardiogram (*1) Stat
Reason for Study: Chest Pain
Comment: DONE
Electrocardiogram (*1) Stat
Reason for Study: Chest Pain
Comment: DONE
05/10/24 11:13
Electrocardiogram (*1) Urgent
Reason for Study: Shortness of Breath
05/10/24 11:14
EKG- Treatment ONCE
05/10/24 11:17
Complete Blood Count/With Diff Urgent
Comprehensive Metabolic Panel Urgent
Manual Differential Urgent
NT-proBNP Urgent
Troponin I Urgent
05/10/24 11:35
Ondansetron Injectable [Zofran] 4 mg .ROUTE .STK-MED ONE
05/10/24 11:37
CT HEAD STROKE ALERT W/o Cont Urgent
Comment:
Reason For Exam: change in ms garbled speech
05/10/24 11:43
0.9% Sodium Chloride 1000 ml [Nss] 1,000 ml IV BOLUS
05/10/24 12:01
Portable Chest Xray [CR Chest Portable - 1 View] Urgent
Comment:
Reason For Exam: weakness
Reason Study Needs to be Portable: Unable to Transport
05/10/24 12:14
Lactic Acid Q4H
Comment: CANCEL 2nd LACTIC ACID IF 1st LACTIC ACID IS LESS THAN 2
Blood Culture Q30M
RAQUEL Source: Blood/Venous
Specimen Description:
Blood Culture Q30M
RAQUEL Source: Blood/Venous
Specimen Description:
05/10/24 12:22
Lorazepam [Ativan] 0.5 mg IV NOW STA
05/10/24 13:08
COVID-19 Antigen Urgent
Source: Nasal Swab
Influenza A+B Rapid Molecular Urgent
RAQUEL Source: Nasal Swab
Specimen Description:
0.9% Sodium Chloride 1000 ml [Nss] 1,000 ml IV BOLUS
05/10/24 13:09
0.9% Sodium Chloride 500 ml [Nss] 500 ml IV BOLUS
05/10/24 14:06
UA Reflex to Culture [Urinalysis Reflex To Culture] Urgent
Date Specimen was Collected: 05/10/24
Time Specimen was Collected: 14:03
Urine Microscopic Reflex Cult Urgent
C DIFF [C difficile Antigen & Toxins] Urgent
RAQUEL Source: Feces/Stool
Specimen Description:
Date Specimen was Collected: 05/10/24
Time Specimen was Collected: 14:03
Norovirus by PCR Urgent
RAQUEL Source: Feces/Stool
Specimen Description:
Date Specimen was Collected: 05/10/24
Time Specimen was Collected: 14:03
Stool Culture Urgent
RAQUEL Source: Feces/Stool
Specimen Description:
Date Specimen was Collected: 05/10/24
Time Specimen was Collected: 14:03
Urine Culture Urgent
RAQUEL Source: U
Specimen Description:
Date Specimen was Collected: 05/10/24
Time Specimen was Collected: 14:03
05/10/24 14:43
Lorazepam [Ativan] 0.5 mg IV NOW STA
05/10/24 15:13
Cefepime HCl [Maxipime] 2,000 mg IV NOW STA
05/10/24 15:14
Abdomen/Pelvis w Contrast CT [CT Abd/pelvis W Iv Cont] Routine
Comment:
Reason For Exam: diarrhea
CARDIOLOGY CONSULT Routine
Consulting Provider: Baltazar Yanes
Was physician already notified: Yes
ONCOLOGY CONSULT Routine
Consulting Provider: Destiney Sanchez
Was physician already notified: Yes
05/10/24 15:33
Admit/Transfer Patient As Directed
Co-Sign Provider:
Level of Care: Inpatient admission
Assign to:: IMU- Intermediate Care
Physician / Group: doroteo
Diagnosis: diarrhea
Reason for Hospitalization: diarrhea
-atrial fib with RVR
Expected length of stay greater than two midnights?: Yes
ELOS- Estimated Length of Stay in days: 3
I certify the patient meets the requirements for IP care: Yes
PRN Pain Medication Management As Directed
May give lesser potent ordered pain med per pt: Yes
preference::
Protocol:: Medication orders for pain may be administered in a
manner that supports deferring to patient preference
when the pt is:
- Requesting an ordered lesser potent pain medication.
Least to most potent pain medications are defined
as: acetaminophen < NSAID < tramadol < opioids
(morphine, oxycodone, hydromorphone).
- Requesting a lesser dose of the same medication IF
ORDERED.
- Requesting a less intrusive route of administration
if both routes are prescribed by the provider (PO <
IV).
05/10/24 15:34
Code Status As Directed
Resuscitation Status: Do not resuscitate
Reached after discussion with pt or family/Healthcare POA: Yes
05/10/24 15:35
Sterile Water [Sterile Water For Injection] 10 ml IV NOW STA
DNR Bracelet Application ONCE
05/10/24 17:26
Lactic Acid Q4H
Comment: CANCEL 2nd LACTIC ACID IF 1st LACTIC ACID IS LESS THAN 2
05/10/24 17:31
Rapid Strep Group A Stat
RAQUEL Source: Throat/Pharynx
Specimen Description:
Date Specimen was Collected: 05/10/24
Time Specimen was Collected: 16:34
05/10/24 18:41
0.9% Sodium Chloride 1000 ml [Nss] 1,000 ml IV 130 mls/hr
Acetaminophen [Tylenol] 650 mg PO Q4HPRN PRN
Lorazepam [Ativan] 0.5 mg PO BIDPRN PRN
Ondansetron Injectable [Zofran] 4 mg IV Q6HPRN PRN
05/10/24 18:41
INFECTIOUS DISEASE CONSULT Routine
Consulting Provider: Chanda Rivera
Was physician already notified: Yes
Activity As Directed
Activity Level: As Tolerated
Neurological Checks As Directed
Frequency: Per unit guidelines
Additional Instructions:: q4h x 4 then q shift
Pneumatic Compression Sleeves As Directed
Type: Knee high
Vital Signs As Directed
Frequency: Per unit guidelines
DX Deep Vein Thrombosis Video Routine
05/10/24 20:00
MetroNIDAZOLE 500 MG/100 ML [Flagyl 500 mg] 100 ml IV Q8H
05/10/24 22:00
Atorvastatin [Lipitor] 20 mg PO HS
Escitalopram Oxalate [Lexapro] 10 mg PO HS
Lorazepam [Ativan] 0.5 mg PO HS
Trazodone [Desyrel] 150 mg PO HS
05/11/24 02:00
Cefepime HCl [Maxipime] 2,000 mg IV Q8H
05/11/24 02:55
Basic Metabolic Panel IN AM
Complete Blood Count/No Diff IN AM
05/11/24 Breakfast
NPO
Allow oral meds: Yes
Allow clear liquids: Sips of Clears
05/11/24 08:00
Calcium Carbonate/Vitamin D3 [Oscal 500 + D] 500 mg PO DAILY
Metoprolol Xl [Toprol Xl] 25 mg PO DAILY
Prednisone [Deltasone] 5 mg PO DAILY
abiraterone 1,000 mg PO DAILY
05/12/24 06:00
Basic Metabolic Panel IN AM
Complete Blood Count/No Diff IN AM
05/13/24 06:00
Basic Metabolic Panel IN AM
Complete Blood Count/No Diff IN AM
05/14/24 06:00
Basic Metabolic Panel IN AM
Complete Blood Count/No Diff IN AM
Abnormal Lab Results
05/10/24 05/10/24 05/10/24
11:17 11:35 12:14
WBC 0.6 L* 10^3/uL
(4.8-10.8)
RBC 3.86 L 10^6/uL
(4.70-6.10)
Hgb 11.2 L g/dL
(13.0-18.0)
Hct 32.8 L %
(39.0-52.0)
Abs Neuts (Manual) 0.0 L* 10^3/uL
(1.4-6.5)
Segmented Neutrophils 11 L %
(42-75)
Lymphocytes (Manual) 67 H %
(20-51)
Monocytes (Manual) 18 H %
(2-9)
Sodium 129 L mmol/L
(135-145)
Chloride 95 L mmol/L
(98-107)
Glucose 142 H mg/dl
(70-99)
Lactic Acid 2.6 H mmol/L
(0.7-2.0)
Total Bilirubin 2.5 H mg/dl
(0.2-1.3)
Total Protein 6.0 L g/dl
(6.3-8.2)
Urine Ketones
Ur Occult Blood Reflex
Urine Bilirubin
Urine Urobilinogen
Leukocyte Esterase Rfl
Urine Bacteria (Reflex)
Urine Albumin (Reflex)
POC Glucose 139 H mg/dl
(70-99)
05/10/24
14:06
WBC
RBC
Hgb
Hct
Abs Neuts (Manual)
Segmented Neutrophils
Lymphocytes (Manual)
Monocytes (Manual)
Sodium
Chloride
Glucose
Lactic Acid
Total Bilirubin
Total Protein
Urine Ketones 1+ A
(Negative)
Ur Occult Blood Reflex 1+ A
(Negative)
Urine Bilirubin 1+ A
(Negative)
Urine Urobilinogen 2+ A
(Neg - 1+)
Leukocyte Esterase Rfl 1+ A
(Negative)
Urine Bacteria (Reflex) Few A
(Negative)
Urine Albumin (Reflex) 2+ A
(Neg - Trace)
POC Glucose
05/10/24 11:17
05/10/24 11:17
Vital Signs
Initial and Last Documented VS:
Initial Vital Signs
Temp Pulse Resp Pulse Ox
98.9 F 108 20 98
05/10/24 11:10 05/10/24 11:10 05/10/24 11:10 05/10/24 11:10
Last Documented Vital Signs
Temp Pulse Resp BP Pulse Ox
98.9 F 112 24 108/84 96
05/11/24 07:30 05/11/24 06:15 05/11/24 06:15 05/11/24 06:00 05/11/24 03:57
<DIANNA Mclain - Last Filed: 05/11/24 09:14>
MDM/Problems Addressed
Differential Diagnosis Includes:
Not limited to weakness dehydration Mirela abnormality infection
MDM/Problems Addressed:
I was called to the patient's room shortly after arrival nurse reports patient went into rapid A-fib. No prior history of A-fib. Upon my entering the room heart rate did break however patient with garbled speech and confused answers. This is new
onset for patient. Patient was able to follow commands and however had no upper or lower extremity drift or his weakness. at bedside. Stroke alert was called. Neurology evaluated patient in bed with ED physician.
When neurology arrived to evaluate patient garbled speech resolved. He had no deficit. Stat CT was ordered.
CAT scan was negative. Patient's speech has been normal since. Patient incidentally has had intermittent episodes of rapid what looks like A-fib/tachycardia but this resolved spontaneously. Patient was found to be afebrile white count very low at
0.6 absolute neutrophil count 0. Patient was placed on neutropenic precautions. Patient negative for COVID-negative for flu. Patient's urine is obtained and pending. Patient's lactic acid is elevated at 2.6 and weight-based septic fluids were
ordered. Urinalysis obtained and pending.
Patient found to have low sodium at 129.
Patient admitted to the hospital for continued evaluation weakness likely related to dehydration diarrhea hyponatremia. Will need monitoring for intermittent bursts of tachycardia neutropenia.
Chronic conditions affecting care:
metastatic prostrate cancer
<DIANNA Mclain - Last Filed: 05/11/24 09:14>
*Radiology
Radiology exam reviewed: radiology read reviewed
*Pulse Oximetry
Patient hypoxic: no
*EKG
Interpreted by ED Provider?: Yes
Interpretation: normal
Heart Rate: 83
Rate: normal
Rhythm: sinus
Ischemia: other (Repeat EKG A-fib/tachycardia in the 140s)
*Critical Care Note
Total Time (30-74mins, 75-104mins- exclusive of procedures): Not Applicable
<DIANNA Mclain - Last Filed: 05/11/24 09:14>
Patient Management
Discussion with other providers: Merchandising Stock Associate (neuro)
ED Attending Note
<DIANNA Mclain - Last Filed: 05/11/24 09:14>
-
Portions of this chart may have been created with voice recognition software.� Occasional wrong word or��sound alike� substitutions may have occurred due to the inherent limitations of voice recognition software.
<Javy Chavarria, DO - Last Filed: 05/10/24 11:56>
ED Attending Note
Patient seen and examined by attending physician: Yes
I performed the substantive portion of visit, reviewed & personally made and approve the management plan that is documented in note by myself or KEY.: Yes
ED Attending Note:
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
appear to be aphasia appear to correlate with a rapid heart rate stroke alert was called neurology was at bedside, check CT of the head EKG IV fluids electrolytes follow closely
Discharge Plan
Departure
Patient Disposition: Admit
Date of Disposition: 05/10/24
Time of Disposition: 14:48
Admit to: Med/Surg
Admit to doctor: hospitalist
Presentation/result/management discussed w/ accepting MD/DO: Hospitalist
Patient with high blood pressure during this ER visit?: Yes
Condition: Fair
Covid-19: Not Applicable
Discharge Problem:
Weakness, Diarrhea, Neutropenia, Acute hyponatremia, Tachycardia
Interventions
Interventions:
*Risk Screen - Suicide Last Done: 05/10/24 11:15
*General Assessment Last Done: 05/10/24 11:15
*Neglect/Abuse Screening Last Done: 05/10/24 11:15
*ED- Fall Risk Assessment Last Done: 05/10/24 11:15
*ED COVID-19 Vaccine History Last Done: 05/10/24 11:15
*Nursing Disposition Last Done: 05/11/24 02:03
ED- Cardiac Assessment Last Done: 05/10/24 13:00
ED- Pulmonary Assessment Last Done: 05/10/24 13:00
Discharge Date and Time
Discharge Date/Time: 05/11/24 02:04
[2024-05-10 11:36] LABS: Glucose - Point of Care 139 mg/dl (70-99)
[2024-05-10 11:49] LABS: ALT (SGPT) 36 U/L (0-50); AST (SGOT) 42 U/L (17-59); Albumin 3.7 g/dl (3.5-5.0); Alkaline Phosphatase 64 U/L (38-126); Blood Urea Nitrogen 15 mg/dl (9-20); Calcium 8.9 mg/dl (8.4-10.2); Carbon Dioxide 23 mmol/L (22-30); Chloride 95 mmol/L (98-107); Estimated Creatinine Clearance 64 ml/min; Glucose 142 mg/dl (70-99); Potassium 3.9 mmol/L (3.5-5.1); Sodium 129 mmol/L (135-145); Total Bilirubin 2.5 mg/dl (0.2-1.3); eGFR > 60.00
[2024-05-10 11:59] LABS: NT-proBNP 465 pg/ml; Troponin I < 0.012 ng/ml
[2024-05-10 12:02] LABS: Hematocrit 32.8 % (39.0-52.0); Hemoglobin 11.2 g/dL (13.0-18.0); Mean Corp Hgb Conc. 34.1 g/dL (33.0-37.0); Mean Platelet Volume 9.5 fL (7.4-10.4); Platelet Count 207 10^3/uL (130-400); Red Blood Cell Count 3.86 10^6/uL (4.70-6.10); Red Cell Dist. Width 12.8 % (11.5-14.5); White Blood Cell Count 0.6 10^3/uL (4.8-10.8)
[2024-05-10] MEDS: ATIVAN 0.5 MG IV ×2 (12:27→14:57)
[2024-05-10] MEDS: NSS 1000 IV ×3 (12:27→20:08)
[2024-05-10 12:37] LABS: Lactic Acid 2.6 mmol/L (0.7-2.0)
[2024-05-10 13:31] LABS: COVID-19 Antigen Negative (Negative)
[2024-05-10 13:48] LABS: Band Neutrophils 0 % (0-3); Segmented Neutrophils 11 % (42-75)
[2024-05-10 13:49] LABS: Atypical Lymphocytes 4 %; Lymphocytes 67 % (20-51); Monocytes 18 % (2-9)
[2024-05-10 13:51] LABS: Normal RBC Morphology Yes; Platelets Checked Yes; Total Cells Counted 100
[2024-05-10] MEDS: NSS 500 IV (14:04)
[2024-05-10 14:22] LABS: Urine Albumin 2+ (Neg - Trace); Urine Bilirubin 1+ (Negative); Urine Character Clear (Clear); Urine Glucose Negative (Negative); Urine Ketone 1+ (Negative); Urine Leukocyte 1+ (Negative); Urine Nitrite Negative (Negative); Urine Occult Blood 1+ (Negative); Urine Specific Gravity 1.015 (<1.030); Urine Urobilinogen 2+ (Neg - 1+)
[2024-05-10 14:23] LABS: Urine Color Yellow
[2024-05-10 14:35] LABS: Urine Granular Cast 0-2 /LPF (0); Urine Hyaline Cast 0-2 /LPF (0-2); Urine White Cell 0-2 /HPF (0-5)
[2024-05-10 14:36] LABS: Urine Red Blood Cell None Seen /HPF (0-2)
[2024-05-10 14:37] LABS: Urine Bacteria Few (Negative)
--- NOTE | 2024-05-10 14:50 | HPS.HSE ---
Family Physician
-
Family Physician: Saqib Hicks
Chief Complaint
-
diarrhea, fatigue and weakness
History of Present Illness
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 for past
24 to 48 hours, noticed worsening diarrhea, progressively getting weaker and fatigue.patient has sore throat, generalized rash. he is vomiting bile. denied fever, chest pain, sob. denied MUNGUIA,dizzy or syncope. denied abdominal pain. denied
dysuria or hematuria. Patient noted garbled speech in the
upon arrival he was noted in atrial fib. patient received normal saline, Ativan in the ER. Stool, blood culture sent from ER. Admitting for further management
Medical History
Past Medical History
Past Medical History: Reports Other
Additional Past Medical History:
HTN
HLD
thoracic aortic aneurysm
aortic regurgitation
GERD
prostate cancer
gilberts disease
spinal fusion
Past Surgical History: Reports Other
Additional Past Surgical History:
cholecystectomy
prostatectomy
right thyroid lobectomy
Social History
Tobacco: Non-smoker
Alcohol: Occasional
Drug: None
Personal:
Living: With Family
Family History
Family History: Not pertinent
Allergies / Home Medications
Allergies reflects when Allergies were last updated in [place].
Home Medications with original date entered in [place]
Allergy/Medication List:
Allergies
Allergy/AdvReac Type Severity Reaction Status Date / Time
ketoconazole Allergy 'adverse Verified 08/02/23 15:06
reaction'
Home Medications
atorvastatin 20 mg tablet (Lipitor) 20 mg PO HS High Cholesterol 02/14/24
celecoxib 200 mg capsule (Celebrex) 200 mg PO DAILYPRN PRN mild pain 02/14/24
escitalopram oxalate 10 mg tablet (Lexapro) 10 mg PO HS Mental Health/Anxiety 02/14/24
metoprolol succinate 25 mg tablet,extended release 24 hr 25 mg PO DAILY Heart Disease/Condition 02/14/24
trazodone 150 mg tablet 150 mg PO HS Sleep 02/14/24
abiraterone 250 mg tablet 1,000 mg PO DAILY 05/10/24
acetaminophen 325 mg tablet (Tylenol) 650 mg PO Q6HPRN PRN fever 05/10/24
calcium 500 mg (as carbonate)-vitamin D3 10 mcg (400 unit) tablet (Calcium 500 + D) 1 tab PO DAILY 05/10/24
hydrochlorothiazide 12.5 mg tablet 12.5 mg PO DAILYPRN PRN high blood pressure 05/10/24
lorazepam 0.5 mg tablet 0.5 mg PO BIDPRN PRN anixety 05/10/24
lorazepam 0.5 mg tablet 0.5 mg PO HS 05/10/24
prednisone 5 mg tablet 5 mg PO DAILY 05/10/24
Review of Systems
-
Constitutional: Reports Fatigue and Chills
EENT: Reports Sore Throat
Respiratory: Reports No Symptoms
Cardiac: Reports No Symptoms
Abdomen/GI: Reports Nausea, Vomiting and Diarrhea
: Reports No Symptoms
Musculoskeletal: Reports No Symptoms
Skin: Reports Rash
Neurological: Reports No Symptoms
Endocrine: Reports No Symptoms
Hematologic/Lymphatic: Reports No Symptoms
Psych: Reports No Symptoms
Physical Exam
Vital Signs
Vital Signs
Temp Pulse Resp BP Pulse Ox
98.9 F 100 28 150/77 97
05/10/24 11:10 05/10/24 14:00 05/10/24 14:00 05/10/24 14:00 05/10/24 13:15
Physical Exam
General: Well Developed, Well Nourished and No Apparent Distress
HEENT: NormoCephalic, Moist mucous membranes and Atraumatic
Respiratory: Clear
Cardiac: Irregular Rhythm and Tachycardia; No Murmur or Rub
GI: Soft, Non Tender, Non Distended and Normal Bowel Sounds; No Organomegaly
Rectal: Deferred by Provider
Musculoskeletal: No Clubbing, No Cyanosis and No Edema
Skin: Rash
Neuro: AO x 3 and Nonfocal/grossly intact
Psych: Calm
Laboratory Results
-
05/10/24 11:17
05/10/24 11:17
Laboratory Results
Lactic Acid 2.6 mmol/L (0.7-2.0) H 05/10/24 12:14
Total Bilirubin 2.5 mg/dl (0.2-1.3) H 05/10/24 11:17
AST 42 U/L (17-59) 05/10/24 11:17
ALT 36 U/L (0-50) 05/10/24 11:17
Alkaline Phosphatase 64 U/L (38-126) 05/10/24 11:17
Troponin I < 0.012 ng/ml 05/10/24 11:17
Data Reviewed
-
Diagnostic Radiology: Report Reviewed by me
CT Scan: Report Reviewed by me
Lab Data: Labs Reviewed by me
Impression/Plan
-
#diarrhea associated with n/v
-covid,flu negative
-chest x ray with the impression of Lungs are hypoinflated with resultant crowding of the basilar bronchovascular markings. Linear scarring within the right lower lung.Cardiac silhouette is enlarged and there is tortuosity of the thoracic aorta,
findings which are likely accentuated by hypoinflation. No gross evidence for pulmonary edema pattern.
-stool culture sent from ER
-blood culture sent from ER
-Will obtain CT of abdomen pelvis
- IV cefepime and Flagyl continue
#weakness likely from diarrhea
PT/OT consulted
#sore throat concern for strep
-obtain rapid strep
#rash likely from chemo
-mosturizer cream
#prostate ca mets to rectum, liver mediastinal region
-Patient received Doxil Taxol chemo last Thursday at [facility]
-Abiraterone continued
-On prednisone
#garbled speech likely from fatigue and weakness continue to monitor
-CT head negative
-Continue to monitor
#leukopenia likely from chemo
-wbc 0.6, lactic 2.6
-Hematology consulted
-ID consulted
#hyponatremia likely hypovolemic
-na 129, will hold HCTZ
-Fluids continued
-BMP in a.m.
#tachycardia/A-fib with RVR
-ekg with sinus tachy with PVCs
-Heart rate at times in 150s
-Cardiology consulted
#Hypertension
-BP stable
Continue metoprolol succinate 25 mg p.o. daily
Hold HCTZ
Cardiac monitoring
#Depression and anxiety:
Continue escitalopram 10 mg p.o. daily
Continue trazodone 150 mg p.o. nightly
Continue lorazepam 0.5 mg 3 times daily as needed
#Ascending aortic aneurysm and mild aortic regurgitation:
Monitor clinically and with serial images as outpatient
# Hyperlipidemia
-statin continued
#DVT prophylaxis:
SCDs
#CODE STATUS:
-DNR
--- NOTE | 2024-05-10 16:12 | W.PN.UPDATE ---
Update Note
Progress Note Update
This is an addendum to the H&P written by Laureen Meeks on 05/10/2024.� Patient seen and examined independently with PROGRAM DIRECTOR/AIR PERSONALITY.
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
hyperlipidemia, anxiety/depression, ascending aortic aneurysm, mild aortic regurgitation, presenting with multiple symptoms after starting chemotherapy last week including sore throat, bloody diarrhea, and rash, and garbled speech.
He had 15 minutes of slurred speech which resolved here.� Stroke alert was called and CT scan negative.� No other neurological symptoms.
Labs show leukopenia and neutropenia with 0 absolute neutrophils.� Labs show sodium of 129, lactic acid 2.6.� Urinalysis unremarkable.
Chest x-ray showed no acute findings.� CT head shows no acute abnormality.� COVID and flu negative.
Sore throat without cough.� Cervical lymphadenopathy.� Check rapid strep.�
Check CT abdomen pelvis to evaluate bloody diarrhea although patient does have chronic bloody stool from rectal cancer.� Stool studies pending.� IV fluids.� NPO.
Patient appears to have paroxysms of A-fib versus SVT.� Heart rate up to 150s.� Will try to capture on EKG.� Cardiology consulted.� Will likely need to start Cardizem drip.
Daughter has been discussing with [facility] and they strongly feel the rash is secondary to chemotherapy.� Presentation not consistent with viral exanthem.� ID consulted.
Patient with neutropenia, with possible GI versus URI source of infection.� Empiric cefepime/Flagyl.� Oncology consulted.
Doubt patient had a stroke. Further evaluation not needed at this time.�
[2024-05-10] MEDS: MAXIPIME 2000 MG IV (17:13)
[2024-05-10] MEDS: STERILE WATER FOR INJECTION 10 ML IV (17:14)
--- NOTE | 2024-05-10 17:17 | CON.CAR ---
Addendum entered and electronically signed by Baltazar Yanes MD 05/10/24 17:51:
I saw and examined the patient.
The JAI ALAI PLAYER's note was reviewed and I agree with the note.
Primary tufting creeler Dr. Fonseca
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 Recently received
chemotherapy. While in the ER he had burst of narrow complex tachycardia up to 160 bpm. Episodes would spontaneously terminate. Of note patient is normally on metoprolol 25 mg twice daily and did not take his medication this morning he reported
lower blood pressure this morning but has since received IV fluids in the ER and currently SBP 118.. Even while at bedside he periodically would have short runs of regular narrow complex tachycardia SVT versus atrial flutter.
-Resume metoprolol at 12.5 mg twice daily rather than 25 mg twice daily and monitor blood pressures. As blood pressure tolerates would then increase dose to back to his usual dose of 25 mg twice daily
-Even if patient had atrial flutter would not anticoagulate at the moment. Patient reportedly has intermittent rectal bleeding and GIB in DEC..
Original Note:
Consultation
Consultation Request
Date/Time Consultation Requested: 05/10/2024 15:15
Date/Time Consultation Performed: 05/10/2024 16:45
Requesting Provider: DIANNA Jacobsen
Performing Provider: DIANNA Lubin for Dr. Yanes
Reason for Consultation: Atrial fibrillation with RVR
Medical History
-
Chief Complaint: Shortness of breath
History of Present Illness:
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
prostate cancer with metastasis to his right lung status-post right middle lobectomy (03/2018; on chemo managed by [facility]), obesity, GERD, vertigo, and migraines (with aura)�who presented to the emergency department with a chief complaint of
shortness of breath. He got chemotherapy exactly one week ago at [facility]. Approximately 48 hours later he had a full body rash. Shortly thereafter, he developed diarrhea which has been persistent since it developed. Per his he was
reporting shortness of breath. The plan was to go be evaluated at [facility] but she was unable to safely get him in her vehicle and had to call EMS. While being evaluated by the ER, he developed garbled speech. Head CT did not show any acute
pathology. He then had an elevated heart rate which appears to be atrial fibrillation with rapid ventricular response. Cardiology was consulted for rhythm management.
Past Medical History
Past Medical History: Arrhythmias (PSVT), Cancer (Metastatic prostate cancer), GERD, HTN (Labile) and Other (Thoracic aortic aneurysm, Gilbert's disease)
Past Surgical History: Urological (Prostatectomy)
Social History
Tobacco: Non-Smoker
Alcohol: None
Drug: None
Personal:
Living: With Family
Employment: Retired
Family History
Family History: Reviewed & Not Pertinent
Allergies / Home Medications
Allergy/AdvReac Type Severity Reaction Status Date / Time
ketoconazole Allergy 'adverse Verified 08/02/23 15:06
reaction'
�Medication �Instructions �Recorded �Confirmed �Type
atorvastatin 20 mg tablet (Lipitor) 20 mg PO HS High Cholesterol 02/14/24 05/10/24 History
celecoxib 200 mg capsule (Celebrex) 200 mg PO DAILYPRN PRN mild pain 02/14/24 05/10/24 History
escitalopram oxalate 10 mg tablet 10 mg PO HS Mental Health/Anxiety 02/14/24 05/10/24 History
(Lexapro)
metoprolol succinate 25 mg 25 mg PO DAILY Heart 02/14/24 05/10/24 History
tablet,extended release 24 hr Disease/Condition
trazodone 150 mg tablet 150 mg PO HS Sleep 02/14/24 05/10/24 History
abiraterone 250 mg tablet 1,000 mg PO DAILY 05/10/24 05/10/24 History
acetaminophen 325 mg tablet 650 mg PO Q6HPRN PRN fever 05/10/24 05/10/24 History
(Tylenol)
calcium 500 mg (as 1 tab PO DAILY 05/10/24 05/10/24 History
carbonate)-vitamin D3 10 mcg (400
unit) tablet (Calcium 500 + D)
hydrochlorothiazide 12.5 mg tablet 12.5 mg PO DAILYPRN PRN high blood 05/10/24 05/10/24 History
pressure
lorazepam 0.5 mg tablet 0.5 mg PO BIDPRN PRN anixety 05/10/24 05/10/24 History
lorazepam 0.5 mg tablet 0.5 mg PO HS 05/10/24 05/10/24 History
prednisone 5 mg tablet 5 mg PO DAILY 05/10/24 05/10/24 History
Review of Systems
-
History Source: Patient
All other systems: Negative unless noted
Constitutional: Fatigue
EENT: Sore Throat
Respiratory: Trouble Breathing
Cardiac: No Symptoms
Abdomen/GI: Nausea and Diarrhea
: No Symptoms
Musculoskeletal: No Symptoms
Skin: No Symptoms
Neurological: Weakness
Endocrine: No Symptoms
Hematologic/Lymphatic: No Symptoms
Physical Exam
Vital Signs
Temp Pulse Resp BP Pulse Ox
98.9 F 102 30 127/98 100
05/10/24 15:00 05/10/24 15:00 05/10/24 15:00 05/10/24 15:00 05/10/24 15:00
Lab Results
05/10/24 11:17
05/10/24 11:17
Troponin I < 0.012 ng/ml 05/10/24 11:17
Xzl-T-Wrpnrjjupvo Pept 465 pg/ml 05/10/24 11:17
Physical Exam
General: Well Developed and Other (Restless)
HEENT: Normocephalic, Anicteric and Moist Mucous Membranes
Respiratory: Clear and Non Labored Respirations
Cardiac: S1/S2 and Regular Rhythm; Negative Peripheral Edema
Breast: Deferred by me
GI: Soft, Non Tender, Non Distended and Normal Bowel Sounds
Rectal: Deferred by Provider
Genito-urinary: No Costovertebral Tender
Musculoskeletal: No Clubbing and No Cyanosis
Skin: Warm and Dry
Neuro: AO x 3
Hematologic/Lymphatic: No Lymphadenopathy
Psych: Agitated
Impression / Plan
-
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
to his right lung status-post right middle lobectomy (03/2018; on chemo managed by Terrence Bhakta) who presented with shortness of breath
Outpatient tufting creeler: Dr. Fonseca
Atrial fibrillation with rapid ventricular response
-Short bursts, metoprolol tartrate 12.5 mg twice daily and follow
-Oral Anticoagulation: None, GIB in January
-[id number]: Score 3 (HTN, age 75 or more)
Hyponatremia, no recent HCTZ use
Lactic acidosis, per primary
Leukopenia, ANC 0, related to chemotherapeutic agent
Diarrhea with associated nausea, perhaps chemo related, per primary
Metastatic prostate cancer
-Received docetaxel by oncologist, Dr. Mraio at [facility] on 05/04/2024
Garbled speech, resolved, no acute pathology on head CT
Labile hypertension, orthostatic component, follow
PSVT, continue beta-nikky
PACs, high burden on outpatient monitoring, on beta-nikky
Thoracic aortic aneurysm, 4.9 cm, continue beta-nikky
Data Reviewed
-
EKG: Report Reviewed by me
Radiology: Report Reviewed by me
CT Scan: Report Reviewed by me
Labs: Labs Reviewed by me
Old Records: Reviewed
[2024-05-10 17:43] LABS: Lactic Acid 1.3 mmol/L (0.7-2.0)
[2024-05-10] MEDS: LOPRESSOR 12.5 MG PO (18:07)
[2024-05-10] MEDS: ATIVAN 0.5 MG PO ×2 (19:45→23:08)
[2024-05-10] MEDS: FLAGYL 500 MG 100 IV (20:07)
[2024-05-10] MEDS: ZOFRAN 4 MG IV (20:47)
[2024-05-10] MEDS: BENADRYL 6.25 MG IV (23:07)
[2024-05-10] MEDS: LIPITOR 20 MG PO (23:08)
[2024-05-10] MEDS: LEXAPRO 10 MG PO (23:08)
[2024-05-10] MEDS: DESYREL 150 MG PO (23:08)
[2024-05-11] VITALS (27 sets, daily range): BP systolic 73–141; BP diastolic 44–123; BMI 29.7
[2024-05-11] MEDS: STERILE WATER FOR INJECTION 10 ML IV ×2 (02:21→09:26)
[2024-05-11] MEDS: MAXIPIME 2000 MG IV ×2 (02:21→09:26)
[2024-05-11] MEDS: ATIVAN 0.5 MG PO ×3 (02:48→21:51)
[2024-05-11] MEDS: TYLENOL 650 MG PO (02:48)
[2024-05-11] MEDS: ZOFRAN 4 MG IV ×2 (02:48→18:43)
[2024-05-11 03:25] LABS: Hematocrit 28.8 % (39.0-52.0); Hemoglobin 10.2 g/dL (13.0-18.0); Mean Corp Hgb Conc. 35.4 g/dL (33.0-37.0); Mean Corpuscular Hgb 29.5 pg (27.0-31.0); Mean Corpuscular Volume 83.2 fL (80.0-94.0); Mean Platelet Volume 9.5 fL (7.4-10.4); Platelet Count 173 10^3/uL (130-400); Red Blood Cell Count 3.46 10^6/uL (4.70-6.10); Red Cell Dist. Width 12.5 % (11.5-14.5); White Blood Cell Count 0.5 10^3/uL (4.8-10.8)
[2024-05-11 03:28] LABS: Blood Urea Nitrogen 15 mg/dl (9-20); Calcium 8.3 mg/dl (8.4-10.2); Carbon Dioxide 21 mmol/L (22-30); Chloride 102 mmol/L (98-107); Estimated Creatinine Clearance 72 ml/min; Glucose 136 mg/dl (70-99); Potassium 3.6 mmol/L (3.5-5.1); Sodium 132 mmol/L (135-145); eGFR > 60.00
--- NOTE | 2024-05-11 04:05 | PTCARENOTE ---
Received patient from ED confused, restless, constantly tossing and turning. Patient follows commands but is very forgetful, garbled speech, [place] b/l. Patient reports took his hearing aids home. Heart rate 90s-150s, sinus tach with PACs/PVCs and
intermittent afib. BP stable, normothermic, palpable radial and pedal pulses b/l. 96% on room air, lung sounds clear. Abdomen soft, round, hypoactive bowel sounds, incontinent of bowel and bladder. Rash on legs b/l. PIVs patent, WNL. Hourly rounding
and patient safety checks ongoing.
[2024-05-11] MEDS: NSS 1000 IV ×4 (05:08→20:50)
[2024-05-11] MEDS: FLAGYL 500 MG 100 IV (05:09)
--- NOTE | 2024-05-11 08:04 | W.PN.CD ---
Today's Communication / Plan
-
- Increase Metoprolol for PSVT
- If hypotensive, can give midodrine transiently.
- IV fluids as needed.
- Neutropenic care
Impression / Plan
-
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
to his right lung status-post right middle lobectomy (03/2018; on chemo managed by Terrence Bhakta) who presented with shortness of breath
Outpatient histology specialist: Dr. Fonseca
Atrial fibrillation with rapid ventricular response
-Atrial tachycardia vs atrial fibrillation
-Short bursts, on metoprolol tartrate 12.5 mg twice daily
-Will increase Metoprolol to home dose of 25 mg BID and follow
-Oral Anticoagulation: None, GIB in January
-[id number]: Score 3 (HTN, age 75 or more)
Hyponatremia, no recent HCTZ use
Lactic acidosis, per primary
Leukopenia, ANC 0, related to chemotherapeutic agent
-On antibiotics.
Diarrhea with associated nausea, perhaps chemo related, per primary
Metastatic prostate cancer
-Received docetaxel by oncologist, Dr. Mario at [facility] on 05/04/2024
Garbled speech, resolved, no acute pathology on head CT
Labile hypertension, orthostatic component, follow
PSVT, continue beta-nikky
PACs, high burden on outpatient monitoring, on beta-nikky
Thoracic aortic aneurysm, 4.9 cm, continue beta-nikky
Physical Exam
Vital Signs/Labs
Vital Signs
Temp Pulse Resp BP Pulse Ox
98.9 F 112 24 108/84 96
05/11/24 07:30 05/11/24 06:15 05/11/24 06:15 05/11/24 06:00 05/11/24 03:57
05/10/24 05/11/24 05/12/24
06:59 06:59 06:59
Actual Weight 93.9 kg
05/11/24 02:55
05/11/24 02:55
05/10/24
11:17
Asp-N-Qkrqfuzmfpn Pept 465
LAB Results
05/10/24
11:17
Troponin I < 0.012
Physical Exam
Constitutional: No acute distress and Comfortable
EENT: Anicteric and Moist mucous membranes
Cardiovascular: Rhythm & rate is regular, Pedal edema is absent and JVD pressure is normal
Respiratory: Respiratory effort normal and Lungs clear to auscul.
GI: Soft and Distention absent
Neuro/Psych: Alert and Oriented
Data Reviewed
-
Date of Service: May 11, 2024
Medical Decision Making: Reviewed Test Results, Test Interpretation and Review of Case with other Provider
EKG: Tracing Personally Visualized and interpreted
Echo: Report Reviewed by me
Labs: Labs Reviewed by me
Old Records: Reviewed
Critical Care Time (in minutes): 32
--- NOTE | 2024-05-11 08:32 | CON.ONC ---
Impression
Impression
Generalized weakness
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
Stage IV prostate cancer with rectal, liver, mediastinum
Intractable severe diarrhea
Severe neutropenia postchemotherapy
Tachycardia/atrial fibrillation
Plan
Plan
Start G-CSF as unclear whether patient received long-acting growth factor at [facility].
Empiric antibiotics have been started. Without fever I do not know that this is necessary. Await infectious disease evaluation and will defer to them.
Suspect bloody diarrhea related to known rectal metastasis.
Fecal C. difficile testing was negative. Okay to start Imodium to control diarrhea.
I recommend holding abiraterone during acute hospitalization and severe illness. Okay to resume once his condition stabilizes. Also hold low-dose prednisone which is being given in conjunction with abiraterone. Discussed with pharmacy. These
agents can be resumed either at time of discharge or potentially after patient gets seen by his oncologist at [facility] depending on how his hospitalization progresses over the next few days.
Patient History
History of Present Illness
CC: Extensive diarrhea
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
presents to with fatigue, weakness, dyspnea, rectal bleeding/bloody diarrhea, rash, and transient garbled speech. No fever but he is profoundly neutropenic with WBC count = 0.5 (ANC = 0.0). Seen by cardiology for rapid atrial fibrillation.
Patient was started on empiric antibiotics cefepime/Flagyl although not clear whether they are needed without fever. Await infectious disease evaluation. Patient is quite hard of hearing. He cannot remember the name of his oncologist at [facility].
Past-Medical/Surgical History
PMH:
Metastatic prostate cancer
GI bleed secondary to rectal mass
hypertension
hyperlipidemia
anxiety/depression
ascending aortic aneurysm
PSH: Prostatectomy
SH
Tobacco: Non-Smoker
Alcohol: None
Drug: None
Personal:
Living: With Family
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
FH: [place]
Patient Medication
�Medication �Instructions �Recorded �Confirmed �Last Taken �Type
atorvastatin 20 mg tablet (Lipitor) 20 mg PO HS High Cholesterol 02/14/24 05/10/24 05/09/24 History
celecoxib 200 mg capsule (Celebrex) 200 mg PO DAILYPRN PRN mild pain 02/14/24 05/10/24 Unknown History
escitalopram oxalate 10 mg tablet 10 mg PO HS Mental Health/Anxiety 02/14/24 05/10/24 05/09/24 History
(Lexapro)
metoprolol succinate 25 mg 25 mg PO DAILY Heart 02/14/24 05/10/24 05/09/24 History
tablet,extended release 24 hr Disease/Condition
trazodone 150 mg tablet 150 mg PO HS Sleep 02/14/24 05/10/24 05/09/24 History
abiraterone 250 mg tablet 1,000 mg PO DAILY 05/10/24 05/10/24 05/09/24 History
acetaminophen 325 mg tablet 650 mg PO Q6HPRN PRN fever 05/10/24 05/10/24 05/09/24 History
(Tylenol)
calcium 500 mg (as 1 tab PO DAILY 05/10/24 05/10/24 05/09/24 History
carbonate)-vitamin D3 10 mcg (400
unit) tablet (Calcium 500 + D)
hydrochlorothiazide 12.5 mg tablet 12.5 mg PO DAILYPRN PRN high blood 05/10/24 05/10/24 Unknown History
pressure
lorazepam 0.5 mg tablet 0.5 mg PO BIDPRN PRN anixety 05/10/24 05/10/24 Unknown History
lorazepam 0.5 mg tablet 0.5 mg PO HS 05/10/24 05/10/24 05/09/24 History
prednisone 5 mg tablet 5 mg PO DAILY 05/10/24 05/10/24 05/09/24 History
Active Medications
Generic Name Dose Route Start Last Admin
Trade Name Freq PRN Reason Stop Dose Admin
Acetaminophen 650 mg 05/10/24 18:41 05/11/24 02:48
Acetaminophen 325 Mg Tablet PO 06/07/24 18:40 650 mg
Q4HPRN PRN Administration
mild pain/MUNGUIA/temp> 100.4F
Atorvastatin Calcium 20 mg 05/10/24 22:00 05/10/24 23:08
Atorvastatin (Lipitor) 20 Mg Tablet PO 06/07/24 21:59 20 mg
HS THONY Administration
Calamine 0 ml 05/10/24 18:41
Calamine Lotion 120 Ml Bottle (6 Oz) TOPICAL 06/07/24 18:40
TIDPRN PRN
rash
Calcium/Vitamin D 500 mg 05/11/24 08:00
Calcium Carbonate 500 Mg/Vitamin D 5 Mcg (200 Units) Tablet PO 06/08/24 07:59
DAILY THONY
Cefepime HCl 2,000 mg 05/11/24 02:00 05/11/24 02:21
Cefepime Hcl 2,000 Mg/12.5 Ml Vial IV 2,000 mg
Q8H THONY Administration
Escitalopram Oxalate 10 mg 05/10/24 22:00 05/10/24 23:08
Escitalopram 10 Mg Tablet PO 06/07/24 21:59 10 mg
HS THONY Administration
Sodium Chloride 1,000 mls @ 130 mls/hr 05/10/24 18:41 05/11/24 05:08
Nss IV 1,000 mls
.Q7H42M THONY Administration
Metronidazole 100 mls @ 100 mls/hr 05/10/24 20:00 05/11/24 05:09
Flagyl 500 Mg IV 100 mls
Q8H THONY Administration
Lorazepam 0.5 mg 05/10/24 18:41 05/11/24 02:48
Lorazepam 0.5 Mg Tablet PO 06/07/24 18:40 0.5 mg
BIDPRN PRN Administration
anixety
Lorazepam 0.5 mg 05/10/24 22:00 05/10/24 23:08
Lorazepam 0.5 Mg Tablet PO 06/07/24 21:59 0.5 mg
HS THONY Administration
Metoprolol Tartrate 12.5 mg 05/11/24 08:00
Metoprolol 12.5 Mg Regular Release Dose (1/2 Of 25 Mg Tablet) PO 06/08/24 07:59
BID THONY
Pt's Own ( 1,000 mg 05/11/24 08:00
Abiraterone 250 Mg PO 06/08/24 07:59
Tablet) DAILY THONY
Ondansetron HCl 4 mg 05/10/24 18:41 05/11/24 02:48
Ondansetron 4 Mg/2 Ml Vial IV 06/07/24 18:40 4 mg
Q6HPRN PRN Administration
nausea and vomiting
Prednisone 5 mg 05/11/24 08:00
Prednisone 5 Mg Tablet PO 06/08/24 07:59
DAILY THONY
Sodium Chloride 0 flush 05/10/24 19:00
Sodium Chloride 0.9% (Flush) Syringe IV 06/07/24 18:59
PER PROTOCOL THONY
Sterile Water 10 ml 05/11/24 02:00 05/11/24 02:21
Sterile Water For Injection 10 Ml Vial IV 06/08/24 01:59 10 ml
Q8H THONY Administration
Trazodone HCl 150 mg 05/10/24 22:00 05/10/24 23:08
Trazodone 150 Mg Tablet PO 06/07/24 21:59 150 mg
HS THONY Administration
Physical Exam
-
General: No Apparent Distress
HEENT: Other (presbycusis); Negative Jaundice
Cardiology: Other (Tachy irregular)
Pulmonary: Clear
GI: Soft
Extremities: Edema
Skin: Other (maculopapular rash LE)
Labs
Lab Results
WBC 0.5 10^3/uL (4.8-10.8) L* 05/11/24 02:55
RBC 3.46 10^6/uL (4.70-6.10) L 05/11/24 02:55
Hgb 10.2 g/dL (13.0-18.0) L 05/11/24 02:55
Hct 28.8 % (39.0-52.0) L 05/11/24 02:55
MCV 83.2 fL (80.0-94.0) 05/11/24 02:55
MCH 29.5 pg (27.0-31.0) 05/11/24 02:55
MCHC 35.4 g/dL (33.0-37.0) 05/11/24 02:55
RDW 12.5 % (11.5-14.5) 05/11/24 02:55
Plt Count 173 10^3/uL (130-400) 05/11/24 02:55
MPV 9.5 fL (7.4-10.4) 05/11/24 02:55
Creatinine 0.8 mg/dL (0.7-1.3) 05/11/24 02:55
Vital Signs
Vital Signs
Temp Pulse Resp BP Pulse Ox
98.9 F 112 24 108/84 96
05/11/24 07:30 05/11/24 06:15 05/11/24 06:15 05/11/24 06:00 05/11/24 03:57
--- NOTE | 2024-05-11 09:10 | CON.ID ---
Consultation
-
Date/Time Consultation Requested: 05/10/2024 1841
Date/Time Consultation Performed: 05/11/2024 0855
Requesting Provider: Laureen Meeks
Performing Provider: Dr. Lopez
Reason for Consultation: Neutropenia, diarrhea
Chief Complaint / Past History
History of Present Illness
Ced Leiva is an 83-year-old man with a significant past medical history of metastatic prostate cancer (rectum, liver, mediastinum mets) being evaluated at the request of Laureen Meeks regarding diarrhea and neutropenia. History is obtained from chart
review, along with patient interview.
The patient reports that he has been on chemotherapy for the last several months, but 1 week ago he began intensified chemotherapy (IV docetaxel, PO abiraterone + prednisone). Over the past week he has had increasing fatigue, profound weakness,
along with rectal bleeding and bloody diarrhea. He reports that he has not been able to take in much fluid, and he feels very dehydrated. In the emergency room, he was found to be in A-fib.
Workup in the ER revealed significant neutropenia. He has been started on empiric antibiotics, although to date he has not had any fever. He currently denies any pain. He denies any cough or congestion. He did admit upon presentation to sore
throat, but none at present.
Past History
Additional Past Medical History:
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
- recent initiation of IV docetaxel, PO abiraterone + prednisone
HTN
Dyslipidemia
Thoracic aortic aneurysm
Aortic insufficiency
GERD
Gilbert's disease
Additional Past Surgical History:
Spinal fusion
Allergy History:
ketoconazole Allergy (Verified 08/02/23 15:06)
'adverse reaction'
Medications Reviewed: Yes
Current Antibiotics:
Cefepime 2 g IV every 8 hours
Metronidazole 500 mg IV every 8 hours
Social History
Tobacco: Non-Smoker
Alcohol: Occasional
Drug: None
Personal:
Living: With Family
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
Family History
Family History: Not Pertinent
Review of Systems
Vital Signs
Temp Pulse Resp BP Pulse Ox
98.9 F 112 24 108/84 96
05/11/24 07:30 05/11/24 06:15 05/11/24 06:15 05/11/24 06:00 05/11/24 03:57
Physical Exam
Physical Exam
Constitutional: Comfortable, Acutely Ill and Non-toxic
Head: Normocephalic
Eyes: Pupils Equal, Pupils Round, No Conjunctival Hemorrhage and Sclera Anicteric
Oral: No Thrush and No Ulcers
Cardiovascular: Regular Rate, S1/S2 and Other (Tachycardic); Negative S3/S4
Pulmonary: Clear; Negative Wheezes, Rales or Rhonchi
Gastrointestinal: Soft, Non Tender, Non Distended, Normal Bowel Sounds, No Rebound and No Guarding
Genito-Urinary: Negative Toribio
Extremities: Negative Cyanosis or Erythema
Skin: Warm and Dry; Negative Rash or Jaundice
Neurological: Awake and Alert
Psychological: Calm
.
Lab / Diagnostic Study Results
05/11/24 02:55
05/11/24 02:55
Total Counted 100 05/10/24 11:17
Abs Neuts (Manual) 0.0 10^3/uL (1.4-6.5) L* 05/10/24 11:17
Segmented Neutrophils 11 % (42-75) L 05/10/24 11:17
Band Neutrophils 0 % (0-3) 05/10/24 11:17
Lymphocytes (Manual) 67 % (20-51) H 05/10/24 11:17
Lactic Acid 1.3 mmol/L (0.7-2.0) 05/10/24 17:26
Ur Squamous Epith Cells 3-5 /LPF (Few) 05/10/24 14:06
Microbiology Results
Micro:
05/10/24 17:31 Streptococcus Screen (RAQUEL) - Pending
Throat/Pharynx Streptococcus Rapid Screen - Final
Rapid Strep Screen (Group A) Negative
05/10/24 14:06 C. difficile GDH Antigen & Toxins - Final
Feces/Stool Negative for toxigenic C.difficile
- Final
Negative for Norovirus GI and GII.
05/10/24 14:06 Urine Culture - Pending
Urine
05/10/24 14:06 Salmonella/Shigella Culture - Pending
Feces/Stool Campylobacter Culture - Pending
Shiga Toxin Test - Pending
05/10/24 13:08 Influenza Types A & B (BEBETO) - Final
Nasal Swab Negative for Influenza A & B, NAAT
Negative results must be combined with clinical observations
and patient history.
Nucleic Acid Amplification test (NAAT)performed on the
[employer] platform.
05/10/24 12:14 Blood Culture - Pending
Blood/Venous
05/10/24 12:14 Blood Culture - Pending
Blood/Venous
Imaging:
05/10/2024 CT abdomen/pelvis with IV contrast: A large obstructing rectal mass which has increased in size since 02/14/2024. Also noted is acute stercoral colitis in the sigmoid colon proximal to the obstructing rectal mass. There is a large amount
of fecal material in the sigmoid colon and splenic flexure. There has been interval progression of hepatic metastatic disease. Patient has had previous prostatectomy and cholecystectomy. Moderate cardiomegaly noted. Please see full dictation for
additional detail. Film personally viewed.
05/10/2024 CXR (portable): Lungs are hypoinflated, with resultant crowding of the basilar bronchial vascular markings. There is linear scarring within the right lower lung. No acute infiltrate noted. Please see full dictation for additional
detail. Film personally viewed.
Assessment / Plan
Neutropenia (without fever)
Profound weakness
Diarrhea
New A-fib
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
- recent initiation of IV docetaxel, PO abiraterone + prednisone at [facility]
Large rectal mass 2* to above
HTN
Dyslipidemia
Thoracic aortic aneurysm
Aortic insufficiency
GERD
Gilbert's disease
Recommendations:
To date, patient has remained afebrile despite neutropenia, thus utility of antibiotics is unclear.
Would agree with [facility] that further cefepime and metronidazole can likely be discontinued, with close observation.
Monitor white count. Patient to receive G-CSF today.
Follow temperature curve closely. Should any fevers develop, will immediately check cultures and initiate antibiotic therapy.
Continue with supportive measures.
Care Review
Plan reviewed with: Physician (Critical care)
[2024-05-11] MEDS: ProAmatine 5 MG PO ×4 (09:23→19:58)
[2024-05-11] MEDS: IMODIUM 4 MG PO (09:24)
[2024-05-11] MEDS: OSCAL 500 + D 500 MG PO (09:24)
--- NOTE | 2024-05-11 11:27 | PTCARENOTE ---
persistent liquid diarrhea. immodium stat admin. patient is confused at times. neuro checks in progress, see worklist. on IVF with NSS @130 ml/hr. BP soft, order for midodrine 5 mg PO TID noted. patient needs anticipated. family at bedside updated
on current plan of care
[2024-05-11 12:19] LABS: ALT (SGPT) 33 U/L (0-50); AST (SGOT) 39 U/L (17-59); Albumin 2.9 g/dl (3.5-5.0); Alkaline Phosphatase 54 U/L (38-126); Direct Bilirubin 0.7 mg/dl (0.0-0.4); Total Bilirubin 2.6 mg/dl (0.2-1.3); Total Protein 5.2 g/dl (6.3-8.2)
[2024-05-11] MEDS: IMODIUM 2 MG PO ×2 (12:50→21:51)
[2024-05-11] MEDS: GRANIX SC (12:58)
--- NOTE | 2024-05-11 13:26 | CM ---
CM following re: discharge planning.
Reviewed pt's chart, met with pt and pt's spouse at bedside.
Pt is an 83 year old male, admitted with primary dx of diarrhea associated with n/v. PMH significant for rectal, colon ca metastasis to liver and mediastinal and rectum recently started chemo 1 week ago at [facility].
Per RN pt is requested to talk to social science manager/family independence case manager. CM made a few attempts to have conversation with the pt and pt was sleeping.
Information obtained from pt's spouse who stated she is retired social science manager. 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 Pt lives with spouse 2SH, 2 steps to enter, 1st floor set up, has 2 supportive children. Per spouse, pt
'wants to talk to a social science manager because he is scary of his situation, does not want to continue chemotherapy and he told me he wants to be comfortable'. Per spouse pt started to use a walker.
PCP: Saqib Hicks
Ph[facility]: [facility]
D/C plan: uncertain at this time and will depend on pt's progress.
CM will follow with discharge plan updates as hospitalization progresses
--- NOTE | 2024-05-11 14:41 | CON.MD ---
Consultation - Medical
-
Full consult to be dictated.
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 He has a known rectal
mass which was biopsy confirmed metastatic prostate cancer on colonoscopy by my partner Dr. Ramo de la garza on 02/17/2024. The mass back then was one third circumferential and nonobstructing. He came back in with significant recent diarrhea and
weakness. His was concerned about dehydration. Repeat imaging in the form of a CT yesterday among other things does show the rectal mass to be much larger in size with evidence for large bowel obstruction and backup of stool particularly
rectosigmoid area. Of note the cecum was not significantly distended. The patient denies abdominal pain and is mildly distended on exam. He is not tender. His does most of the talking for him. He has recently been on chemotherapy under the
guidance of Terrence Bhakta and has secondary neutropenia with a WBC of 0.5. On discussion with Dr. Limon of medical oncology, it sounds like his neutropenia may be back to normal by early next week. On exam he has a palpable circumferential distal
rectal mass. There is liquid stool which is nonbloody on his depends. I discussed the situation with Dr. Bermeo as well as the patient's . Obviously there is no cure for the situation. However to prevent complete large bowel obstruction and
perforation, there may be a role for a palliative colostomy. I would not perform this today or tomorrow given his neutropenia, however there may be grounds for considering this early next week presuming his WBC has improved. Patient's seems
to understand and is leaning in that direction. She wishes to discuss this further with her over the next few days.
Thanks.
--- NOTE | 2024-05-11 14:52 | PTOTSP ---
Dysphagia Evaluation
Patient with acute on chronic dysphagia risk factors (i.e., tachypnea, AMS with acute illness; metastatic cancer receiving chemo, GERD). Suspect at least mild oral stage dysphagia with elevated risk for breathing/swallowing coordination difficulty
with tachypnea.
Recommend:
1. Cautious IDDSI Level 4 Puree, Thin Liquids
2. Medications: in puree
3. Full supervision/assist
4. Strategies: upright to 90 degrees, PO only when awake/alert/calm, small single sips/bites, slow rate, breaks for breathing, reflux precautions
5. Oral care 3-5x daily
6. Dysphagia tx at the acute care level to assess for diet tolerance, advancement, and/or need for instrumental testing
--- NOTE | 2024-05-11 14:53 | W.PN.HOSP.TC ---
Addendum entered and electronically signed by You Andrews MD 05/11/24 22:49:
Attending Addendum-
I saw and evaluated the patient. I reviewed the resident�s note and agree with findings and plan as documented in the resident�s note. Sub: Seen with . Patient confused and uncomfortable. does most of talking. Moving bowels while talking.
Patient not making much sense. Having loose stools. Full 12 point ROS reviewed and negative except as documented Exam: Vitals reviewed in chart GEN-mild distress heart irreg irreg lungs clear abd distended pos BS TTP no rebound LE no edema Neuro AAO
x 1 Skin- mac pap raised rash on b/l LE
# SIRS possibly from stercoral colitis
- was started on cefepime and Flagyl
- Seen by ID kristen dc'd - CTM
- likely obstructed
- covid,flu negative
- stool cx -NGTD
- urine cx- NGTD
- blood cx- NGTD
- CT of abdomen pelvis-
1. 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
2. ACUTE STERCORAL COLITIS in the SIGMOID COLON proximal to the obstructing rectal mass.
3. Large amount of fecal material in the sigmoid colon and splenic flexure of the colon.
4. Interval progression of HEPATIC METASTATIC DISEASE.
5. Fusiform infrarenal abdominal aortic aneurysm (2.6 cm diameter).
6. Previous L4 and L5 laminectomies and circumferential fusion at L5/S1.
- c/s CRS for eval
- poor prognosis
#rash likely from chemo
-moisturizer cream
#Prostate ca mets to rectum, liver mediastinal region/Severe Neutropenia
-rectal mass/met much larger than previous ->obstruction
-Patient received Doxil Taxol chemo last Thursday at [place]
-Abiraterone and prednisone- on hold
-onc input appreciated
-ANC-0
-granix x 1 05/11
-c/s CRS for possible palliative colonic stent vs colostomy
#CIMS/Toxic Metabolic Encephalopathy
- possible due to infection vs chemo vs dehydration
- CT head negative
- Continue to monitor
#Hyponatremia likely hypovolemic
-hold HCTZ
-improving
-Fluids continued
-BMP in a.m.
#Atrial tachycardia/A-fib with RVR
- Cardiology input appreciated
- restart home dose metoprolol
- no AC due to GI bleed
#Hypertension
-BP low
-could be rate dependent
-Continue metoprolol
-Hold HCTZ
-start midodrine
#Depression and anxiety:
-Continue escitalopram
-Continue trazodone
-Continue lorazepam
#Ascending aortic aneurysm
Monitor clinically and with serial images as outpatient
# Hyperlipidemia
-statin continued
#DVT prophylaxis:
SCDs
#CODE STATUS:
-DNR
ACP
Patient unable to consent to discuss, present, time spent explanation of advance directives, changes in health status, patient�s health care wishes if the patient becomes unable to make health decisions, goals of care, code status, and
prognosis t/c palliative measures- 16 minutes
Time spent coordinating care, review of plan of care with resident, personally reviewed previous records in EMR, med rec, labs, radiology, d/w nursing, family total time documented is exclusive of any additional time listed that was spent in advance
care planning discussion -�55 minutes
Original Note:
Today's Communication/Plan
-
Fluids
granulocyte stimulating factor
Monitor for temp and cultures to restart antibiotics if needed
Assessment / Plan
Assessment / Plan
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
ED on 3�11 with nausea, vomiting, profuse diarrhea. He was also noted to have garbled speech and complained of a sore throat. He recently started chemo (doxil, taxol) 1 week ago at [place] with Dr. Mario. In the ED, he was found to be
hypertensive, tachycardic with A-fib, tachypneic, LA 2.6, WBC 0.6, neutrophils 0, hyponatremic 129. Patient had no focal neurological deficits, however head CT was ordered without contrast which did not show any acute etiology for cause of garbled
speech. Abdomen pelvis CT revealed large 6.7 obstructing rectal mass that increase in size since prior CT in January and acute stercoral colitis in sigmoid colon. Patient was started on broad-spectrum antibiotics suspecting severe sepsis
secondary to stercoral colitis. Heme-onc was consulted. Patient also seen by cardiology for rapid A-fib. Infectious disease was consulted for suspected infection. Of note, he is hard of hearing.
Diarrhea associated with N/V
Obstructing rectal mass and stercoral colitis
-SIRS (+) with tachycardia, tachypnea, LA 2.6, WBC 0.6 on admission however source unclear and afebrile
-Received Doxil Taxol chemo last Thursday at [place]
-Abdomen pelvis CT revealed 6.2 obstructing rectal mass and stercoral colitis and hepatic metastatic disease
-Blood and urine cultures pending
-Stool cultures (-) for c.diff or norovirus, other cultures pending
-Blood noted in stool per
-Recieved 1 dose flagyl on 05/10 and 2 doses cefepime 05/10, 05/11, both dc per ID as no infectious source evident
-LA now 1.3
-Fluids
-Colorectal discussing palliative colostomy as diarrhea could be escaping liquid around the mets mass
-NPO for bowel rest
Severe neutropenia post chemotherapy
Stage 4 prostate cancer with mets
-Mets to liver, mediastinum, rectum, previously lung as well s/p RLL resection
-Hemeonc appreciated
-On combination IV docetaxel, PO abiraterone + prednisone follows at [facility] started on docetaxel last week
-Granulocyte stimulating factor started by heme-onc
-Holding abiraterone and prednisone during acute hospitalization and severe illness per [facility]
-According to only on prednisone for last two weeks so not concerned for hypotension related to adrenal insufficiency
A. fib with RVR
-Noted on admission
-Cardiology appreciated
-Pt had not taken metoprolol that morning
-Restarted on 25 twice daily per cards
-[id number] score 3, however not on anticoagulation due to prior GI bleeds
Hypotension
-BP low this am
-Fluids and midodrine per cardiology
-Hold home HCTZ
Garbled speech
-Speech not at baseline according to and daughters
-Head CT (-) for stroke
-No noted FND
-Mucositis noticed on physical exam likely contributing
-Neuro check q4hrs
-Pureed diet with thin liquids under supervision per speech eval when he starts eating again
Sore throat
-Complained of sore throat on admission, but later denied
-Step, covid and flu (-)
-Mucositis noted on PE likely causing pain
Hypovolemic hyponatremia
-Sodium 129 on admission, uptrending with fluids
-Monitor BMP
Generalized weakness
-PT/OT
-Fluids
-Management of underlying conditions
Anemia
-Likely chronic secondary from chemo meds
- did say he had bright red blood in stools, but none noted upon PE per colorectal
-Monitor CBC
Ascending aortic aneurysm (4.9cm)
Fusiform infrarenal abdominal aortic aneurysm (2.6cm ab CT 05/11/2024)
Aortic regurgitation
-LVEF 01/12/24 65-70%
-Aortic root (4.1 cm), Sinus of Valsalva (4.9 cm) and ascending aorta (4.2 cm)
dilatation 01/12/24
-Continue BB
Chemo Rash
-Calamine lotion PRN
Anxiety depression
-Continue lexapro
-Continue lorazepam 0.5 qpm
-Lorazepam started 3 to 4 weeks ago, not currently worrisome for withdrawal
-Continue home trazodone
Hyperbilirubinemia
-Hx giberts
HLD
-Cont statin
Anticipated Discharge: > 48 hours
Subjective/Interval History
-
Date of Service: May 11, 2024
Objective Data
-
Labs:
Laboratory Results
05/11/24
02:55
WBC 0.5 L*
Hgb 10.2 L
Hct 28.8 L
Plt Count 173
Sodium 132 L
Potassium 3.6
Chloride 102
Carbon Dioxide 21 L
BUN 15
Creatinine 0.8
Glucose 136 H
Calcium 8.3 L
Total Bilirubin 2.6 H
AST 39
ALT 33
Alkaline Phosphatase 54
Vital Signs:
Vital Signs
Temp Pulse Resp BP Pulse Ox
98.2 F 112 24 97/63 96
05/11/24 11:27 05/11/24 06:15 05/11/24 06:15 05/11/24 12:49 05/11/24 03:57
I&O
05/10/24 05/11/24 05/12/24
06:59 06:59 06:59
Intake Total 620 / 750 390 / 390
Output Total 200 / 200
Balance 420 / 550 390 / 390
Review of Systems
-
History Source: Patient
Constitutional: Reports Fatigue
EENT: Reports No Symptoms Reported
Respiratory: Reports No Symptoms
Cardiac: Reports No Symptoms
Abdomen/GI: Reports Diarrhea
Genitourinary: Reports No Symptoms
Neuro: Reports No Symptoms
Physical Exam
-
HEENT: Normocephalic and Other (Mucositis )
Respiratory: Clear to Auscultation
Cardiac: Irregular Rhythm
GI: Soft, Nontender (Pt stated nontender), Normal Bowel Sounds and Distended
Musculoskeletal: No Edema
Skin: Rash
Neuro: AO x 3
Psych: Confused
[2024-05-11] MEDS: CALAMINE LOTION 180 ML TOPICAL (17:51)
--- NOTE | 2024-05-11 20:15 | PTCARENOTE ---
Pt received start of shift, HR afib 120s on telemetry. Family reports increased confusion, pt restless in bed. Thrashing around. Tachypneic. Pt states he feels 'lousy'. Pulsox check 87-88%. 2L NC placed on pt. SpO2 93-96%. BP 80/50. TT [employer] Hephziba,
single dose midodrine ordered and administered. Incontinent alana urine. Pt oriented to self and location, not time. Confusion, stating he needs to 'get out of here', unable to say where 'here' is. Following directions.
Pt HR occasionally going into 140s-160s afib. [employer] aware, at bedside.
[2024-05-11] MEDS: LIPITOR 20 MG PO (21:51)
[2024-05-11] MEDS: LEXAPRO 10 MG PO (21:51)
[2024-05-11] MEDS: DESYREL 150 MG PO (21:51)
[2024-05-12] VITALS: BP 93/79
[2024-05-12 02:00] VITALS: BP 101/69
[2024-05-12] MEDS: ATIVAN 0.5 MG PO (03:13)
[2024-05-12] MEDS: IMODIUM 2 MG PO (03:13)
--- NOTE | 2024-05-12 03:35 | PTCARENOTE ---
When pt becomes restless, O2 sat drops to 89-90%. NC now 4L 92-94%. PRN ativan for restlessness. Pt frequently incontinent loose stool - PRN imodium
[2024-05-12 04:19] VITALS: BP 85/52
[2024-05-12 04:20] VITALS: BP 84/60
[2024-05-12] MEDS: NSS 1000 IV (05:26)
[2024-05-12 05:54] LABS: Ammonia 9 umol/L (9-30)
[2024-05-12 06:00] VITALS: BP 81/61
[2024-05-12 06:00] LABS: Blood Urea Nitrogen 25 mg/dl (9-20); Calcium 8.2 mg/dl (8.4-10.2); Carbon Dioxide 17 mmol/L (22-30); Chloride 106 mmol/L (98-107); Estimated Creatinine Clearance 34 ml/min; Glucose 75 mg/dl (70-99); Potassium 3.9 mmol/L (3.5-5.1); Sodium 135 mmol/L (135-145); eGFR 39.51
[2024-05-12 06:16] LABS: Hematocrit 29.4 % (39.0-52.0); Hemoglobin 10.1 g/dL (13.0-18.0); Mean Corp Hgb Conc. 34.4 g/dL (33.0-37.0); Mean Corpuscular Volume 84.5 fL (80.0-94.0); Mean Platelet Volume 9.9 fL (7.4-10.4); Platelet Count 179 10^3/uL (130-400); Red Blood Cell Count 3.48 10^6/uL (4.70-6.10); Red Cell Dist. Width 12.8 % (11.5-14.5); White Blood Cell Count 0.8 10^3/uL (4.8-10.8)
--- NOTE | 2024-05-12 07:48 | W.PN.CD ---
Today's Communication / Plan
-
Hold metop for hypotension
If HRs remain elevated > 120 would start amio gtt
Consider levophed for hypotension
Impression / Plan
-
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
to his right lung status-post right middle lobectomy (03/2018; on chemo managed by Terrence Bhakta) who presented with shortness of breath
Outpatient cut file clerk: Dr. Fonseca
Atrial fibrillation with rapid ventricular response
-Atrial tachycardia vs atrial fibrillation
-Short bursts, on metoprolol tartrate 12.5 mg twice daily
-Hold Metop given hypotension
-Oral Anticoagulation: None, GIB in January
-[id number]: Score 3 (HTN, age 75 or more)
Hypotension/septic shock?
- per primary
Hyponatremia, no recent HCTZ use
Lactic acidosis, per primary
Leukopenia, ANC 0, related to chemotherapeutic agent
-On antibiotics.
Diarrhea with associated nausea, perhaps chemo related, per primary
Metastatic prostate cancer
-Received docetaxel by oncologist, Dr. Mario at [facility] on 05/04/2024
Garbled speech, resolved, no acute pathology on head CT
Labile hypertension, orthostatic component, follow
PSVT, continue beta-nikky
PACs, high burden on outpatient monitoring, on beta-nikky
Thoracic aortic aneurysm, 4.9 cm, continue beta-nikky
Subjective: confused and hypotensive this am
Physical Exam
Vital Signs/Labs
Vital Signs
Temp Pulse Resp BP Pulse Ox
99.6 F 111 31 81/61 93
05/12/24 03:52 05/12/24 06:30 05/12/24 06:30 05/12/24 06:00 05/12/24 06:00
05/11/24 05/12/24 05/13/24
06:59 06:59 06:59
Actual Weight 207 lb 0.225 oz
05/12/24 05:15
05/12/24 05:15
05/10/24
11:17
Atk-N-Hyptdzlwjzv Pept 465
LAB Results
05/10/24
11:17
Troponin I < 0.012
Physical Exam
Constitutional: Confusion and Distress
EENT: Anicteric
Cardiovascular: Rhythm/rate is irregular
Respiratory: Crackles Present and Rhonchi Present
GI: Soft and Distention absent
Neuro/Psych: Other (confused )
Data Reviewed
-
Date of Service: May 12, 2024
EKG: Tracing Personally Visualized and interpreted (af)
Echo: Report Reviewed by me
Labs: Labs Reviewed by me
Critical Care Time (in minutes): 31
[2024-05-12 07:58] LABS: ALT (SGPT) 30 U/L (0-50); AST (SGOT) 58 U/L (17-59); Albumin 3.1 g/dl (3.5-5.0); Alkaline Phosphatase 63 U/L (38-126); Direct Bilirubin 0.8 mg/dl (0.0-0.4); Total Bilirubin 2.4 mg/dl (0.2-1.3); Total Protein 5.3 g/dl (6.3-8.2)
[2024-05-12] MEDS: GRANIX 480 MCG SC (08:04)
[2024-05-12] MEDS: OSCAL 500 + D PO (08:07)
[2024-05-12] MEDS: ProAmatine PO (08:08)
[2024-05-12 08:22] LABS: Band Neutrophils 1 % (0-3); Segmented Neutrophils 5 % (42-75)
[2024-05-12 08:23] LABS: Atypical Lymphocytes 1 %; Lymphocytes 41 % (20-51); Monocytes 48 % (2-9); Plasmacytoid Lymphocytes 2 %
[2024-05-12 08:24] LABS: Normal RBC Morphology Yes; Platelets Checked Yes; Total Cells Counted 100
--- NOTE | 2024-05-12 08:59 | W.PN.HOSP.TC ---
Addendum entered and electronically signed by You Andrews MD 05/12/24 23:42:
Attending Addendum-
I saw and evaluated the patient. I reviewed the resident�s note and agree with findings and plan as documented in the resident�s note. Sub: Seen with and daughters. Patient confused and lethargic not responding to commands. nursing reports low
BP's Full 12 point ROS unobtainable Exam: Vitals reviewed in chart GEN-lethargic heart irreg irreg tachy lungs clear abd distended pos BS TTP no rebound LE no edema Neuro AAO x o Skin- mac pap raised rash on b/l LE
# Multiorgan System Failure/ presumably Septic Shock
- blous x 1L stat
- family t/c pressors
- was started on cefepime and Flagyl
- Seen by ID abx dc'd - CTM
- likely obstructed
- covid,flu negative
- stool cx -NGTD
- urine cx- NGTD
- blood cx- NGTD
- CT of abdomen pelvis-
1. 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
2. ACUTE STERCORAL COLITIS in the SIGMOID COLON proximal to the obstructing rectal mass.
3. Large amount of fecal material in the sigmoid colon and splenic flexure of the colon.
4. Interval progression of HEPATIC METASTATIC DISEASE.
5. Fusiform infrarenal abdominal aortic aneurysm (2.6 cm diameter).
6. Previous L4 and L5 laminectomies and circumferential fusion at L5/S1.
- c/s CRS
- poor prognosis
#rash likely from chemo
-moisturizer cream
#Prostate ca mets to rectum, liver mediastinal region/Severe Neutropenia
-rectal mass/met much larger than previous ->obstruction
-Patient received Doxil Taxol chemo last Thursday at [place]
-Abiraterone and prednisone- on hold
-onc input appreciated
-ANC-100
-granix x 1 05/11
-c/s CRS for possible palliative colonic stent vs colostomy- poor prognosis
#CIMS/Toxic Metabolic Encephalopathy
- possible due to infection vs chemo vs dehydration
- STAT CT head-neg
- Continue to monitor
#Hyponatremia likely hypovolemic
-hold HCTZ
-improving
-Fluids continued
-BMP in a.m.
#Atrial tachycardia/A-fib with RVR
- Cardiology input appreciated
- no AC due to GI bleed
#Hypertension
-BP low
-could be rate dependent
-Continue metoprolol
-Hold HCTZ
-start midodrine
-t/c pressors bolus 1 L
#Depression and anxiety:
-Continue escitalopram
-Continue trazodone
-Continue lorazepam
#Ascending aortic aneurysm
Monitor clinically and with serial images as outpatient
# Hyperlipidemia
-statin continued
#DVT prophylaxis:
SCDs
#CODE STATUS:
-DNR
Seen again- family would like to pursue comfort measure no pressors-pronounced patient shortly thereafter
ACP
Patient unable to consent to discuss, and daughters present, time spent explanation of advance directives, changes in health status, patient�s health care wishes if the patient becomes unable to make health decisions, goals of care, code
status, and prognosis - start comfort care measures - 18 minutes
Seen and pronounces d/w resident d/w consultants d/w family at great length and consoled dc summary and pronouncement completed and reviewed - entered in [employer]- time spent 38 minutes
Original Note:
Today's Communication/Plan
-
Fluids
repeat head CT
Echo
repeat c.diff
consider levophed if bp cont to drop
Assessment / Plan
Assessment / Plan
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
ED on with nausea, vomiting, profuse diarrhea. He was also noted to have garbled speech and complained of a sore throat. He recently started chemo (doxil, taxol) 1 week ago at [place] with Dr. Mario. In the ED, he was found to be
hypertensive, tachycardic with A-fib, tachypneic, LA 2.6, WBC 0.6, neutrophils 0, hyponatremic 129. Patient had no focal neurological deficits, however head CT was ordered without contrast which did not show any acute etiology for cause of garbled
speech. Abdomen pelvis CT revealed large 6.7 obstructing rectal mass that increase in size since prior CT in January and acute stercoral colitis in sigmoid colon. Patient was started on broad-spectrum antibiotics suspecting severe sepsis
secondary to stercoral colitis. Heme-onc was consulted. Patient also seen by cardiology for rapid A-fib. Infectious disease was consulted for suspected infection. Of note, he is hard of hearing.
Diarrhea associated with N/V
Obstructing rectal mass and stercoral colitis
-SIRS (+) with tachycardia, tachypnea, LA 2.6, WBC 0.6 on admission however source unclear and afebrile
-Received Doxil Taxol chemo last Thursday at [place]
-Abdomen pelvis CT revealed 6.2 obstructing rectal mass and stercoral colitis and hepatic metastatic disease
-Blood and urine prelim cultures negative
-Stool cultures (-) for c.diff or norovirus, other cultures pending
-Blood noted in stool per
-Received 1 dose flagyl on 05/10 and 2 doses cefepime 05/10, 05/11, both dc per ID as no infectious source evident
-Fluids
-Imodium on hold due to obstructing mass
-Family no longer interested in palliative colostomy
-Repeat c.diff
-NPO for bowel rest
CIMS/toxic metabolic encephalopathy
-Speech not at baseline on admission according to and daughters
-Head CT (-) for stroke
-No noted FND
-Mucositis noticed on physical exam likely contributing
-Neuro check q4hrs
-Pureed diet with thin liquids under supervision per speech eval when he starts eating again
-repeat Head CT as increased confusion and sedation today
Hypotension
-Fluids and midodrine per cardiology
-Hold home HCTZ and metoprolol
-Levophed if cont to drop
-Echo
A. fib with RVR
-Noted on admission
-Cardiology appreciated
-[id number] score 3, however not on anticoagulation due to prior GI bleeds
-Due to hypotension hold metoprolol per cards
-Start amio ggt if HR cont >120
-Consider levo if still hypotensive
Severe neutropenia post chemotherapy
Stage 4 prostate cancer with mets
-Mets to liver, mediastinum, rectum, previously lung as well s/p RLL resection
-rectal mass/met much larger than previous ->obstruction
-Hemeonc appreciated
-On combination IV docetaxel, PO abiraterone + prednisone follows at [facility] started on docetaxel last week
-Granix x1 05/11
-Holding abiraterone and prednisone during acute hospitalization and severe illness per hemeonc
-Slight increased in WBC from 0.5 to 0.8. Cont to monitor for response to granix
ISAAC
-Cr 0.8 to 1.7
-Cont fluids as likely pre-renal
Sore throat
-Complained of sore throat on admission, but later denied
-Step, covid and flu (-)
-Mucositis noted on PE likely causing pain
Hypovolemic hyponatremia
-resolved
-Monitor BMP
Generalized weakness
-PT/OT
-Fluids
-Management of underlying conditions
Anemia
-Likely chronic secondary from chemo meds
- did say he had bright red blood in stools, but none noted upon PE per colorectal
-Monitor CBC
Ascending aortic aneurysm (4.9cm)
Fusiform infrarenal abdominal aortic aneurysm (2.6cm ab CT 05/11/2024)
Aortic regurgitation
-LVEF 01/12/24 65-70%
-Aortic root (4.1 cm), Sinus of Valsalva (4.9 cm) and ascending aorta (4.2 cm)
dilatation 01/12/24
-Continue BB
Rash likely from chemo
-Calamine lotion PRN
Anxiety depression
-Continue lexapro
-Continue lorazepam 0.5 qpm
-Lorazepam started 3 to 4 weeks ago, not currently worrisome for withdrawal
-Continue home trazodone
Hyperbilirubinemia
-Hx giberts
HLD
-Cont statin
Anticipated Discharge: > 48 hours
Subjective/Interval History
-
Date of Service: May 12, 2024
Objective Data
-
Labs:
Laboratory Results
05/12/24
05:15
WBC 0.8 L*
Hgb 10.1 L
Hct 29.4 L
Plt Count 179
Sodium 135
Potassium 3.9
Chloride 106
Carbon Dioxide 17 L
BUN 25 H
Creatinine 1.7 H
Glucose 75
Calcium 8.2 L
Total Bilirubin 2.4 H
AST 58
ALT 30
Alkaline Phosphatase 63
Vital Signs:
Vital Signs
Temp Pulse Resp BP Pulse Ox
98.1 F 111 31 81/61 93
05/12/24 08:00 05/12/24 06:30 05/12/24 06:30 05/12/24 06:00 05/12/24 06:00
I&O
05/11/24 05/12/24 05/13/24
06:59 06:59 06:59
Intake Total 620 / 750 1360 / 1360
Output Total 200 / 200
Balance 420 / 550 1360 / 1360
Review of Systems
-
Unable to obtain full review of systems at this time due to: Acuity
History Source: Patient
Physical Exam
-
General: Appears in Distress and Appears Chronically Ill
Respiratory: Clear to Auscultation
Cardiac: S1/S2 and Tachycardic
GI: Soft, Normal Bowel Sounds and Distended
Musculoskeletal: No Edema
Neuro: Sedated
--- NOTE | 2024-05-12 09:07 | W.PN.ONC2 ---
Today's Communication / Plan
-
Continue supportive care with G-CSF. WBC slightly higher. Hgb is stable.
C. difficile testing of the feces negative so Imodium can be used PRN as needed.
Agree that if he is responding to treatment (probably too soon to know for sure), palliative surgery is unlikely to improve survival and may actually increase morbidity.
However, if he continues to bleed and potentially obstructs, palliative surgery could be beneficial.
For now, lets see how he does over the weekend and hold off on plans for surgery based on his family's wishes as well as his oncologist at [facility].
Reviewed case with primary team and CRS.
Impression
Impression
Generalized weakness
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
Stage IV prostate cancer with rectal, liver, mediastinum
Intractable severe bloody diarrhea 2* to colon met
Severe neutropenia postchemotherapy
Tachycardia/atrial fibrillation
Plan
Plan
As above, plans for palliative surgery tentatively on hold.
Patient with significant adverse events to docetaxel chemotherapy. Currently on G-CSF.
WBC count is just slightly higher today. Up from 0.5-0.8.
Hemoglobin is stable @Hgb = 10.1.
HOLD abiraterone (and concomitant prednisone 5 mg daily) during acute hospitalization and severe illness. Okay to resume once his condition stabilizes.
Patient has been following with [facility] x 15 years and family has close relationship with Dr. Mario ([phone] cell).
Subjective/Objective
Chief Complaint
ACS Heme Onc
Subjective
Patient sleeping comfortably. When I walked into the room, his and 2 daughters were at the bedside. I discussed the possibility of proceeding with palliative colostomy surgery as mentioned yesterday by colorectal surgery and the patient's
coming off and relatively quickly stated that they are not going to consent/agree to surgery. He did not specify why possibly sounds like they spoke to the patient's oncologist at [facility] last night and that may have something to do with the
change in plans.
Vital Signs:
Vital Signs
Temp Pulse Resp BP Pulse Ox
98.1 F 111 31 81/61 93
05/12/24 08:00 05/12/24 06:30 05/12/24 06:30 05/12/24 06:00 05/12/24 06:00
Lab Results:
Laboratory Data
WBC 0.8 10^3/uL (4.8-10.8) L* 05/12/24 05:15
Hgb 10.1 g/dL (13.0-18.0) L 05/12/24 05:15
Plt Count 179 10^3/uL (130-400) 05/12/24 05:15
eGFR 39.51 05/12/24 05:15
Orders
Orders
Orders From Last 24 Hours
05/11/24 08:53
Loperamide [Imodium] 2 mg PO Q4HPRN PRN
Loperamide [Imodium] 4 mg PO NOW STA
05/11/24 09:00
Tbo-Filgrastim [Granix] 480 mcg SC DAILY
[2024-05-12 10:04] LABS: Lactic Acid 2.1 mmol/L (0.7-2.0)
[2024-05-12] MEDS: ATIVAN 1 MG IV (11:15)
--- NOTE | 2024-05-12 11:29 | PTCARENOTE ---
received in AM, restless and agitated, unable to redirect. patient does not follow commands. family at bedside. unable to take PO meds due to increased lethargy. MD aware. BP 70/50s. new order for IVF [address] head ordered. patient
received 1 mg IV Ativan for the CT scan. continues with frequent loose BMs. stool specimen pending collection
[2024-05-12] MEDS: NSS 500 IV (12:01)
--- NOTE | 2024-05-12 14:15 | PTCARENOTE ---
BP 65/54 after 500 cc IVF bolus. Another 1 L bolus ordered and administered. BP 71/45 MAP 54, MD aware. Family decided against starting pressors. patient's monitor turned to comfort mode per family. Code status DNR.
--- NOTE | 2024-05-12 14:16 | W.PN.UPDATE ---
Update Note
Progress Note Update
I met with the patient's and daughter. They do not want surgery and the plan is for comfort measures.
Will follow as needed.
--- NOTE | 2024-05-12 14:22 | W.PN.ID1 ---
Date of Service
Date of Service: May 12, 2024
Today's Communication
Maintain comfort. No antibiotics.
Assessment / Plan
Neutropenia (without fever)
Profound weakness
Diarrhea
New A-fib
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
- recent initiation of IV docetaxel, PO abiraterone + prednisone at [facility]
Large rectal mass 2* to above
HTN
Dyslipidemia
Thoracic aortic aneurysm
Aortic insufficiency
GERD
Gilbert's disease
Recommendations:
Patient currently with agonal breathing.
I had a discussion with the and daughters regarding further treatment. At this point in time they understand that he is passing is likely eminent. They did have a question about antibiotics, and at this point in time I related that
antibiotics would provide no meaningful improvement for him. Additionally, pressors were offered, but they have declined at this point.
They would like to focus on maintaining his comfort. The patient is currently DNR.
Nothing further to add from a Infectious Diseases standpoint.
Will see again at your request.
Chief Complaint
-: Clinical Sepsis
Subjective / Review of Systems
Patient seen and examined. and daughters at the bedside.
Vital Signs / Physical Exam
Vital Signs
Vital Signs
Temp Pulse Resp BP Pulse Ox
99.9 F 111 31 81/61 94
05/12/24 11:38 05/12/24 06:30 05/12/24 06:30 05/12/24 06:00 05/12/24 11:26
Physical Exam
Constitutional: Acutely Ill and Chronically Ill
Pulmonary: Other (Agonal breathing)
Gastrointestinal: Non Distended
Neurological: Other (Minimally responsive)
Psychological: Calm
Objective Data
Lab Data
Lab Results
05/12/24 05:15
05/12/24 05:15
Estimated Creat Clear 34 ml/min 05/12/24 05:15
Lactic Acid 2.1 mmol/L (0.7-2.0) H 05/12/24 09:42
Total Bilirubin 2.4 mg/dl (0.2-1.3) H 05/12/24 05:15
AST 58 U/L (17-59) 05/12/24 05:15
ALT 30 U/L (0-50) 05/12/24 05:15
Alkaline Phosphatase 63 U/L (38-126) 05/12/24 05:15
Most recent labs reviewed.
Micro Results:
05/10/24 12:14 Blood Culture - Preliminary
Blood/Venous No Growth in 48 hours- Final report to follow
05/10/24 12:14 Blood Culture - Preliminary
Blood/Venous No Growth in 48 hours- Final report to follow
05/10/24 14:06 Salmonella/Shigella Culture - Final
Feces/Stool No Salmonella, Shigella, Aeromonas or Plesiomonas species
isolated.
Campylobacter Culture - Final
No Campylobacter species isolated.
Shiga Toxin Test - Final
No E. coli Shiga Toxin 1 or 2 detected.
05/10/24 17:31 Streptococcus Screen (RAQUEL) - Final
Throat/Pharynx No Beta Hemolytic Streptococci Isolated
Streptococcus Rapid Screen - Final
Rapid Strep Screen (Group A) Negative
05/10/24 14:06 Urine Culture - Final
Urine NO GROWTH
05/10/24 14:06 C. difficile GDH Antigen & Toxins - Final
Feces/Stool Negative for toxigenic C.difficile
- Final
Negative for Norovirus GI and GII.
05/10/24 13:08 Influenza Types A & B (BEBETO) - Final
Nasal Swab Negative for Influenza A & B, NAAT
Negative results must be combined with clinical observations
and patient history.
Nucleic Acid Amplification test (NAAT)performed on the
[employer] platform.
Imaging:
05/10/2024 CT abdomen/pelvis with IV contrast: A large obstructing rectal mass which has increased in size since 02/14/2024. Also noted is acute stercoral colitis in the sigmoid colon proximal to the obstructing rectal mass. There is a large amount
of fecal material in the sigmoid colon and splenic flexure. There has been interval progression of hepatic metastatic disease. Patient has had previous prostatectomy and cholecystectomy. Moderate cardiomegaly noted. Please see full dictation for
additional detail. Film personally viewed.
05/10/2024 CXR (portable): Lungs are hypoinflated, with resultant crowding of the basilar bronchial vascular markings. There is linear scarring within the right lower lung. No acute infiltrate noted. Please see full dictation for additional
detail. Film personally viewed.
Care Review
Plan reviewed with: Physician (Primary service)
--- NOTE | 2024-05-12 14:46 | CM ---
Chart reviewed and goal is comfort.
Plan; Comfort measures.
--- NOTE | 2024-05-12 15:02 | PTCARENOTE ---
this RN observe asystole on the main monitor, after assessing the patient for no heart rate and no breathing, MD notified and the patient was pronounced. family at bedside, pasting machine operator present. ES provided.
--- NOTE | 2024-05-12 16:17 | W.PN.DEATH ---
Addendum entered and electronically signed by You Andrews MD 05/12/24 23:44:
COD- Multiorgan System Failure secondary to Metastatic Prostate Carcinoma
Yassine Andrews MD
Original Note:
Pronouncement of
-
Called to see patient to pronounce.
No spontaneous heart tones or respirations noted.
Patient not responsive to verbal stimuli.
Patient is pronounced .
Time of : 15:05
Date of : 05/12/24
Cause of : metastatic prostate carcinoma
Family Notified: Yes
--- NOTE | 2024-05-12 18:12 | W.DCSUMMARY ---
Addendum entered and electronically signed by You Andrews MD 05/12/24 23:43:
Read, reviewed, and agree. See same day progress note for additional details.
Yassine Andrews MD
Original Note:
Documented by User: Angela Melgar MD, Resident 05/12/24 19:25
Discharge Summary
Discharge Data
Date of Admission: 05/10/24
Date of Discharge: 05/12/24
-
Pending Results: No
Hospital Course
Primary diagnosis:
Systemic inflammatory response syndrome possibly from stercoral colitis
Stage IV prostate cancer
Toxic metabolic encephalopathy
Hyponatremia
Atrial fibrillation with rapid ventricular response
Hypotension
Neutropenia
Rash
Secondary diagnosis:
Depression/anxiety
Ascending aortic aneurysm
Hyperlipidemia
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
ED on 3�11 with nausea, vomiting, profuse diarrhea. He was also noted to have garbled speech and complained of a sore throat. He recently started chemo (doxil, taxol) 1 week ago at [place] with Dr. Mario. In the ED, he was found to be
hypertensive, tachycardic with A-fib, tachypneic, LA 2.6, WBC 0.6, neutrophils 0, hyponatremic 129. Patient had no focal neurological deficits, however head CT was ordered without contrast which did not show any acute etiology for cause of garbled
speech. Abdomen pelvis CT revealed large 6.7 obstructing rectal mass that increase in size since prior CT in January and acute stercoral colitis in sigmoid colon. Patient was started on broad-spectrum antibiotics suspecting severe sepsis
secondary to stercoral colitis. Heme-onc was consulted. Patient also seen by cardiology for rapid A-fib. Infectious disease was consulted for suspected infection.
Pt was started on Granix by heme-onc, preliminary cultures and swabs all came back negative and patient was taken off of antibiotics per recommendations of ID in conjunction with recommendations of heme-onc. Cardiology recommended continuation's of
the patient's home metoprolol as he had not taken at that morning due to illness. Colorectal was also consulted for evaluation of mass. Palliative colostomy bag was discussed but later decided against by patient's family. Patient's white blood
cell count did increase slightly after the Granix, however blood pressure started to drop and there was a change in the patient's mental status. Antihypertensives were held. Midodrine and fluid was given and repeat head CT was done as well as
cardiac echo. Patient was unresponsive to fluids and per wishes of the patient and family, pressors were not initiated.
Patient on 05/12/2024 peacefully surrounded by loved ones.
Discharge Plan
-
Patient Disposition:
Date/Time
Date/Time: 05/12/24 15:05
Discharge Date and Time
Discharge Date/Time: 05/12/24 15:05
Print Language: AMERICAN

Documented by User: You Andrews MD 05/12/24 23:32
Discharge Summary
Discharge Data
Date of Admission: 05/10/24
Date of Discharge: 05/12/24
Discharge Plan
-
Patient Disposition:
Date/Time
Date/Time: 05/12/24 15:05
Discharge Date and Time
Discharge Date/Time: 05/12/24 15:05
Print Language: AMERICAN
== END 2024-05-12 15:05 | disposition expired | DRG 808 ==
LOC: ICU 15:41
PROVIDERS: Nurse Practitioner; Registered Nurse; ADMITTING PHYSICIAN Hospitalist; ATTENDING PHYSICIAN Family Medicine; CONSULT PHYSICIAN Internal Medicine Cardiovascular Disease; EMERGENCY PHYSICIAN Emergency Medicine; FAMILY PHYSICIAN Internal Medicine; OTHER PHYSICIAN Internal Medicine Hematology & Oncology; OTHER PHYSICIAN Internal Medicine Infectious Disease; OTHER PHYSICIAN Surgery
DX: D70.9 Neutropenia, unspecified (principal); A41.9 Sepsis, unspecified organism; G92.8 Other toxic encephalopathy; C78.5 Secondary malignant neoplasm of large intestine and rectum; C78.7 Secondary malignant neoplasm of liver and intrahepatic bile duct; E87.1 Hypo-osmolality and hyponatremia; I47.19 Other supraventricular tachycardia; K52.89 Other specified noninfective gastroenteritis and colitis; C61 Malignant neoplasm of prostate; E86.1 Hypovolemia; Z11.52 Encounter for screening for COVID-19; L27.0 Generalized skin eruption due to drugs and medicaments taken internally; T45.1X5A Adverse effect of antineoplastic and immunosuppressive drugs, initial encounter; I48.91 Unspecified atrial fibrillation; F41.9 Anxiety disorder, unspecified; F32.A Depression, unspecified; I71.21 Aneurysm of the ascending aorta, without rupture; E78.00 Pure hypercholesterolemia, unspecified; Z66 Do not resuscitate; I10 Essential (primary) hypertension; E80.4 Gilbert syndrome; K21.9 Gastro-esophageal reflux disease without esophagitis; I35.1 Nonrheumatic aortic (valve) insufficiency; Z98.1 Arthrodesis status; I49.3 Ventricular premature depolarization; Z79.899 Other long term (current) drug therapy; G43.109 Migraine with aura, not intractable, without status migrainosus; E66.9 Obesity, unspecified; Z68.29 Body mass index [BMI] 29.0-29.9, adult; H91.90 Unspecified hearing loss, unspecified ear
CPT/HCPCS: 70450; 71045; 74177; 80053; 81003; 81015; 82140; 82248; 82962; 83605; 83880; 84484; 85025; 87040; 87045; 87046; 87070; 87077; 87086; 87324; 87427; 87449; 87502; 87798; 87811; 87880; 92610; 93005; 93306; 96361; 96374; 96375; 99285; J1447; Q9967